=== PATIENT | female | born 1940 | race American Indian/Alaskan Native ===

== ENCOUNTER 2016-08-20 11:11 | Inpatient (IN) | payer MEDICARE ==
[2016-08-20] MEDS ORDERED: NACL 0.9% 1000 ML 1,000 ML IV ONE (12:38)
[2016-08-20] MEDS ORDERED: ZOFRAN IV ONE (12:41)
--- NOTE | 2016-08-20 12:44 | Emergency Department Report ---
HPI - General Chief Complaint: Weakness Time Seen by Provider: 08/20/16 12:26 - HPI HPI: Room 5 The patient is a 75-year-old female presenting with a chief complaint of nausea vomiting and diarrhea. The patient states for the past 2-3 days she has had nausea vomiting and diarrhea. The patient states she has stopped eating secondary to these symptoms. Family noticed the patient's blood sugar has been elevated (400s). Family is also noticed the patient appears to have the "shakes." The patient denies pain of any type. Patient denies shortness of breath or dysuria. Patient denies any sick contacts. Patient denies recent antibiotic use Location: Gastrointestinal system, see above Duration: 2-3 days Quality: Painless Severity: Moderate Modifying factors: [see above] Context: [see above] Mode of transportation: [not driving] ED Past Medical Hx - Past Medical History Hx Hypertension: Yes Hx Diabetes: Yes Additional medical history: high chol. PVD - Surgical History Additional Surgical History: vascular surgery - Family History Family history: no significant - Social History Smoking Status: Never Smoker Substance Use Type: None - Medications Home Medications: Home Medications Medication Instructions Recorded Confirmed Last Taken Type Aspirin [[place] Aspirin] 81 mg PO QDAY 10/21/13 08/20/16 Unknown History Gabapentin 100 mg PO TID 10/21/13 08/20/16 Unknown History Insulin Aspart [Novolog Flexpen] 5 units SUB-Q TID 10/21/13 08/20/16 Unknown History Insulin Glargine,Hum.rec.anlog 18 unit SUB-Q QHS 10/21/13 08/20/16 Unknown History [Lantus Solostar] Metoprolol [Lopressor TAB] 100 mg PO QDAY 10/21/13 08/20/16 Unknown History Simvastatin 20 mg PO QHS 10/21/13 08/20/16 Unknown History cloNIDine [Catapres] 0.2 mg PO BID 10/21/13 08/20/16 Unknown History Bisacodyl [Dulcolax] 5 mg PO DAILY PRN 08/20/16 08/20/16 Unknown History Cilostazol [Pletal] 100 mg PO BID 08/20/16 08/20/16 Unknown History Clopidogrel [Plavix] 75 mg PO QDAY 08/20/16 08/20/16 Unknown History ED Review of Systems ROS: Stated complaint: WEAKNESS Other details as noted in HPI Comment: All other systems reviewed and negative Constitutional: denies: chills, fever Eyes: denies: eye pain, eye discharge, vision change ENT: denies: ear pain, throat pain Respiratory: denies: cough, shortness of breath, wheezing Cardiovascular: denies: chest pain, palpitations Endocrine: no symptoms reported Gastrointestinal: nausea, vomiting, diarrhea. denies: abdominal pain Genitourinary: denies: urgency, dysuria, discharge Musculoskeletal: denies: back pain, joint swelling, arthralgia Skin: denies: rash, lesions Neurological: denies: headache, weakness, paresthesias Psychiatric: denies: anxiety, depression Hematological/Lymphatic: denies: easy bleeding, easy bruising Physical Exam - Physical Exam Vital Signs: Vital Signs 08/20/16 12:07 Temperature 97.8 F Pulse Rate 110 H Respiratory 20 Rate Blood Pressure 240/135 [Right] O2 Sat by Pulse 100 Oximetry Physical Exam: GENERAL: The patient is well-developed well-nourished female lying on stretcher not appearing to be in acute distress. [] HEENT: Normocephalic. Atraumatic. Extraocular motions are intact. NECK: Supple. Trachea midline CHEST/LUNGS: Clear to auscultation. There is no respiratory distress noted. HEART/CARDIOVASCULAR: Regular. There is tachycardia. There is no gallop rub or murmur. ABDOMEN: Abdomen is soft, nontender. Patient has normal bowel sounds. There is no abdominal distention. SKIN: There is no rash. There is no edema. There is no diaphoresis. NEURO: The patient is awake, alert, and oriented. The patient is cooperative. The patient has normal speech MUSCULOSKELETAL: There is no evidence of acute injury. ED Course Vital Signs 08/20/16 12:07 Temperature 97.8 F Pulse Rate 110 H Respiratory 20 Rate Blood Pressure 240/135 [Right] O2 Sat by Pulse 100 Oximetry ED Medical Decision Making - Lab Data Result diagrams: 08/20/16 12:40 08/20/16 12:40 Laboratory Tests 08/20/16 08/20/16 08/20/16 12:27 12:27 12:40 WBC 20.7 H RBC 4.78 Hgb 13.5 Hct 41.9 MCV 88 MCH 28 MCHC 32 RDW 15.3 H Plt Count 316 Add Manual Diff Complete Total Counted 100 Seg Neuts % (Manual) 81.0 H Band Neutrophils % 3.0 Lymphocytes % (Manual) 9.0 L Reactive Lymphs % (Man) 0 Monocytes % (Manual) 7.0 Eosinophils % (Manual) 0 Basophils % (Manual) 0 Metamyelocytes % 0 Myelocytes % 0 Promyelocytes % 0 Blast Cells % 0 Nucleated RBC % Not Reportable Seg Neutrophils # Man 16.8 H Band Neutrophils # 0.6 Lymphocytes # (Manual) 1.9 Abs React Lymphs (Man) 0.0 Monocytes # (Manual) 1.4 H Eosinophils # (Manual) 0.0 Basophils # (Manual) 0.0 Metamyelocytes # 0.0 Myelocytes # 0.0 Promyelocytes # 0.0 Blast Cells # 0.0 WBC Morphology Not Reportable Hypersegmented Neuts Not Reportable Hyposegmented Neuts Not Reportable Hypogranular Neuts Not Reportable Smudge Cells Not Reportable Toxic Granulation Not Reportable Toxic Vacuolation Not Reportable Dohle Bodies Not Reportable Pelger-Huet Anomaly Not Reportable Pauline Rods Not Reportable Platelet Estimate Not Reportable Clumped Platelets Not Reportable Plt Clumps, EDTA Not Reportable Large Platelets Not Reportable Giant Platelets Not Reportable Platelet Satelliting Not Reportable Plt Morphology Comment Not Reportable RBC Morphology Not Reportable Dimorphic RBCs Not Reportable Polychromasia Not Reportable Hypochromasia Not Reportable Poikilocytosis Not Reportable Anisocytosis Few Microcytosis Not Reportable Macrocytosis Not Reportable Spherocytes Not Reportable Pappenheimer Bodies Not Reportable Sickle Cells Not Reportable Target Cells Not Reportable Tear Drop Cells Not Reportable Ovalocytes Not Reportable Helmet Cells Not Reportable Mcqueen-Maud Bodies Not Reportable [place] Rings Not Reportable [place] Cells Not Reportable Bite Cells Not Reportable Crenated Cell Not Reportable Elliptocytes Not Reportable Acanthocytes (Spur) Not Reportable Rouleaux Not Reportable Hemoglobin C Crystals Not Reportable Schistocytes Not Reportable Malaria parasites Not Reportable Sriram Bodies Not Reportable Hem Pathologist Commnt No VBG pH Sodium Potassium Chloride Carbon Dioxide Anion Gap BUN Creatinine Estimated GFR BUN/Creatinine Ratio Glucose POC Glucose 421 H Calcium Total Bilirubin AST ALT Alkaline Phosphatase Total Creatine Kinase CK-MB (CK-2) CK-MB (CK-2) Rel Index Troponin T Total Protein Albumin Albumin/Globulin Ratio Triglycerides Cholesterol LDL Cholesterol Direct HDL Cholesterol Cholesterol/HDL Ratio Amylase Lipase TSH Free T4 Urine Color Blue Urine Turbidity Turbid Urine pH 5.0 Ur Specific [place] 1.016 Urine Protein 100 mg/dl Urine Glucose (UA) >=500 Urine Ketones 20 Urine Blood Sm Urine Nitrite Neg Urine Bilirubin Neg Urine Urobilinogen < 2.0 Ur Leukocyte Esterase Mod Urine WBC (Auto) > 182.0 H Urine RBC (Auto) 62.0 Urine Mucus 1+ Ketones 08/20/16 08/20/16 08/20/16 12:40 12:40 12:40 WBC RBC Hgb Hct MCV MCH MCHC RDW Plt Count Add Manual Diff Total Counted Seg Neuts % (Manual) Band Neutrophils % Lymphocytes % (Manual) Reactive Lymphs % (Man) Monocytes % (Manual) Eosinophils % (Manual) Basophils % (Manual) Metamyelocytes % Myelocytes % Promyelocytes % Blast Cells % Nucleated RBC % Seg Neutrophils # Man Band Neutrophils # Lymphocytes # (Manual) Abs React Lymphs (Man) Monocytes # (Manual) Eosinophils # (Manual) Basophils # (Manual) Metamyelocytes # Myelocytes # Promyelocytes # Blast Cells # WBC Morphology Hypersegmented Neuts Hyposegmented Neuts Hypogranular Neuts Smudge Cells Toxic Granulation Toxic Vacuolation Dohle Bodies Pelger-Huet Anomaly Pauline Rods Platelet Estimate Clumped Platelets Plt Clumps, EDTA Large Platelets Giant Platelets Platelet Satelliting Plt Morphology Comment RBC Morphology Dimorphic RBCs Polychromasia Hypochromasia Poikilocytosis Anisocytosis Microcytosis Macrocytosis Spherocytes Pappenheimer Bodies Sickle Cells Target Cells Tear Drop Cells Ovalocytes Helmet Cells Mcqueen-Maud Bodies [place] Rings [place] Cells Bite Cells Crenated Cell Elliptocytes Acanthocytes (Spur) Rouleaux Hemoglobin C Crystals Schistocytes Malaria parasites Sriram Bodies Hem Pathologist Commnt VBG pH 7.328 Sodium 143 Potassium 3.3 L Chloride 104.1 Carbon Dioxide 16 L Anion Gap 26 BUN 48 H Creatinine 3.9 H Estimated GFR 14 BUN/Creatinine Ratio 12.30 Glucose 446 H POC Glucose Calcium 10.0 Total Bilirubin 0.6 AST 14 ALT 7 Alkaline Phosphatase 143 H Total Creatine Kinase 119 CK-MB (CK-2) 8.7 H CK-MB (CK-2) Rel Index 7.3 H Troponin T 0.037 H Total Protein 9.7 H Albumin 4.3 Albumin/Globulin Ratio 0.8 Triglycerides 80 Cholesterol 188 LDL Cholesterol Direct 80 HDL Cholesterol 92 H Cholesterol/HDL Ratio 2.04 Amylase 107 Lipase 15 TSH Free T4 Urine Color Urine Turbidity Urine pH Ur Specific [place] Urine Protein Urine Glucose (UA) Urine Ketones Urine Blood Urine Nitrite Urine Bilirubin Urine Urobilinogen Ur Leukocyte Esterase Urine WBC (Auto) Urine RBC (Auto) Urine Mucus Ketones 12.2 H 08/20/16 12:40 WBC RBC Hgb Hct MCV MCH MCHC RDW Plt Count Add Manual Diff Total Counted Seg Neuts % (Manual) Band Neutrophils % Lymphocytes % (Manual) Reactive Lymphs % (Man) Monocytes % (Manual) Eosinophils % (Manual) Basophils % (Manual) Metamyelocytes % Myelocytes % Promyelocytes % Blast Cells % Nucleated RBC % Seg Neutrophils # Man Band Neutrophils # Lymphocytes # (Manual) Abs React Lymphs (Man) Monocytes # (Manual) Eosinophils # (Manual) Basophils # (Manual) Metamyelocytes # Myelocytes # Promyelocytes # Blast Cells # WBC Morphology Hypersegmented Neuts Hyposegmented Neuts Hypogranular Neuts Smudge Cells Toxic Granulation Toxic Vacuolation Dohle Bodies Pelger-Huet Anomaly Pauline Rods Platelet Estimate Clumped Platelets Plt Clumps, EDTA Large Platelets Giant Platelets Platelet Satelliting Plt Morphology Comment RBC Morphology Dimorphic RBCs Polychromasia Hypochromasia Poikilocytosis Anisocytosis Microcytosis Macrocytosis Spherocytes Pappenheimer Bodies Sickle Cells Target Cells Tear Drop Cells Ovalocytes Helmet Cells Mcqueen-Maud Bodies [place] Rings [place] Cells Bite Cells Crenated Cell Elliptocytes Acanthocytes (Spur) Rouleaux Hemoglobin C Crystals Schistocytes Malaria parasites Sriram Bodies Hem Pathologist Commnt VBG pH Sodium Potassium Chloride Carbon Dioxide Anion Gap BUN Creatinine Estimated GFR BUN/Creatinine Ratio Glucose POC Glucose Calcium Total Bilirubin AST ALT Alkaline Phosphatase Total Creatine Kinase CK-MB (CK-2) CK-MB (CK-2) Rel Index Troponin T Total Protein Albumin Albumin/Globulin Ratio Triglycerides Cholesterol LDL Cholesterol Direct HDL Cholesterol Cholesterol/HDL Ratio Amylase Lipase TSH 1.620 Free T4 1.04 Urine Color Urine Turbidity Urine pH Ur Specific [place] Urine Protein Urine Glucose (UA) Urine Ketones Urine Blood Urine Nitrite Urine Bilirubin Urine Urobilinogen Ur Leukocyte Esterase Urine WBC (Auto) Urine RBC (Auto) Urine Mucus Ketones - Differential Diagnosis DKA, gastroenteritis, dehydration Critical care attestation.: If time is entered above; I have spent that time in minutes in the direct care of this critically ill patient, excluding procedure time. ED Disposition Clinical Impression: Nausea vomiting and diarrhea, Acute renal failure, UTI (urinary tract infection ), Hypertension, Leukocytosis Disposition: OP ADMITTED IP TO THIS HOSP Is pt being admited?: Yes Does the pt Need Aspirin: No Condition: Serious Instructions: Hypertension (ED) Referrals: PRIMARY CARE, [Primary Care Provider] - 3-5 Days Time of Disposition: 15:17 (hospitalist paged)
--- NOTE | 2016-08-20 12:55 | Admit Criteria Form ---
Admission Criteria Documentation: VOMITING Clinical Indications for Admission to Inpatient Care ( Place 'X' for any and all applicable criteria): Admission is indicated for ANY ONE of the following(1)(2)(3): [X ]I. Inpatient admission required rather than observation care because of ANY ONE of the following: [ ]i) Hemodynamic instability that is severe or persistent [ ]ii) Vomiting that is severe or persistent [ ]iii) Severe electrolyte abnormalities requiring inpatient care [ ]iv) Severe pain requiring acute inpatient management [ ]v) High fever or infection requiring inpatient admission as indicated by ANY ONE of the following(7)(8): [ ]1) Appropriate outpatient or observation care antimicrobial treatment unavailable, not effective, or not feasible [ ]2) Documented bacteremia [ ]3) Temp >104.9 degrees F (40.5 degrees C) (oral) [ ]4) Temp >103.1 degrees F (39.5 C) (oral) or <96.8 degrees F (36 C) (rectal) that does not respond to all emergency treatment measures [X ]vi) Acute renal failure [ ]vii) IV fluid to replace significant ongoing losses (greater than 3 L/m2 per day) [ ]viii) Parenteral nutrition regimen that must be implemented on inpatient basis [ ]ix) Other condition, treatment or monitoring requiring inpatient admission [ ]II. Complete or partial gastrointestinal obstruction [ ]III. Other cause of vomiting requiring hospitalization (eg, poisoning, increased intracranial pressure) [ ]IV. Vomiting due to significant metabolic derangement (eg, severe hypercalcemia, diabetic ketoacidosis) Extended stay beyond goal length of stay may be needed for(1)(4): [ ]a) Severe vomiting [ ]b) Persistent vomiting, vital sign changes, severe electrolyte imbalance , or diagnosed cause of vomiting that requires continued hospitalization (eg, gastrointestinal obstruction , increased intracranial pressure) [ ]c) Surgery to treat identified causes of vomiting (eg, bowel obstruction , intracranial process) [ ]d) Comorbid illness that requires inpatient care (eg, acute heart failure , renal failure) [ ]e) Need for inpatient endoscopy The original [email or web address] content created by [email or web address] has been revised. The portions of the content which have been revised are identified through the use of italic text or in bold, and [facility] [employer] has neither reviewed nor approved the modified material. All other unmodified content is copyright [facility]. Please see references footnoted in the original [facility] edition 2016 Admission Criteria Met: Yes
[2016-08-20 13:08] LABS: Hematocrit 41.9 % (30.3-42.9); Hemoglobin 13.5 gm/dl (10.1-14.3); Mean Corpuscular HGB Conc 32 % (30-34); Mean Corpuscular Hemoglobin 28 pg (28-32); Mean Corpuscular Volume 88 fl (79-97); Platelet Count 316 K/mm3 (140-440); Red Blood Count 4.78 M/mm3 (3.65-5.03); Red Cell Distribution Width 15.3 % (13.2-15.2)
[2016-08-20 13:22] LABS: Creatine Kinase MB 8.7 ng/mL (0.0-4.0)
[2016-08-20 13:23] LABS: B-Hydroxybutyrate 12.2 mg/dL (0.2-2.8)
[2016-08-20 13:24] LABS: Albumin 4.3 g/dL (3.9-5); Albumin/Globulin Ratio 0.8 %; BUN/Creatinine Ratio 12.3; Bilirubin,Total 0.6 mg/dL (0.1-1.2); Chloride 104.1 mmol/L (98-107); Potassium 3.3 mmol/L (3.6-5.0); Total Protein 9.7 g/dL (6.3-8.2)
[2016-08-20] MEDS ORDERED: CATAPRES PO ONE (13:35)
[2016-08-20 13:39] LABS: White Blood Count 20.7 K/mm3 (4.5-11.0)
[2016-08-20] MEDS ORDERED: ROCEPHIN/NS 1 GM/50 ML 50 ML IV ONE (14:15)
[2016-08-20 14:17] LABS: Basophils % (Manual) 0 % (0.0-1.8); Blastocytes % (Manual) 0 %; Eosinophils % (Manual) 0 % (0.0-4.3)
[2016-08-20 14:18] LABS: Anisocytosis Few; Diff Status Complete
[2016-08-20 15:10] LABS: Bilirubin,Urine NEG (Negative); Blood,Urine SM (Negative); Ketones,Urine 20 mg/dL (Negative); Leukocyte Esterase,Urine MOD (Negative); Mucus,Urine 1+ /HPF; Nitrite,Urine NEG (Negative); Urobilinogen,Urine < 2.0 mg/dL (<2.0)
[2016-08-20 15:18] LABS: WBC,Urine > 182.0 /HPF (0.0-6.0)
[2016-08-20] MEDS ORDERED: LOPRESSOR PO ONE ×2 (15:24→16:05)
[2016-08-20] MEDS ORDERED: NACL 0.45% 1000 ML 1,000 ML IV SCH ×2 (16:00→19:00)
[2016-08-20] MEDS ORDERED: K-DUR PO ONE (16:00)
--- NOTE | 2016-08-20 16:13 | History and Physical Report ---
History of Present Illness Date of examination: 08/20/16 Date of admission: 08/20/16 Chief complaint: reduced appetite for 3 days with confusion History of present illness: MIss Sanchez is a 75 yo AAF who presented to the ER with reduced oral intake for 2 -3 days; fever and lethargy; no abdominal pain; non productive cough; diarrhea- soft stool with nausea and vomitting over the last few days; she was seen in the ER and though to have a UTI with acute renal failure; she was started on IVF and IV antibiotics Past History Past Medical History: diabetes, hypertension, PVD, renal failure Past Surgical History: Other ( LT AKA) Social history: full code. denies: smoking, alcohol abuse, prescription drug abuse, IV drug use Family history: diabetes, hypertension Medications and Allergies Allergies Allergy/AdvReac Type Severity Reaction Status Date / Time No Known Allergies Allergy Verified 10/24/13 17:22 Home Medications Medication Instructions Recorded Confirmed Last Taken Type Aspirin [[place] Aspirin] 81 mg PO QDAY 10/21/13 08/20/16 Unknown History Gabapentin 100 mg PO TID 10/21/13 08/20/16 Unknown History Insulin Aspart [Novolog Flexpen] 5 units SUB-Q TID 10/21/13 08/20/16 Unknown History Insulin Glargine,Hum.rec.anlog 18 unit SUB-Q QHS 10/21/13 08/20/16 Unknown History [Lantus Solostar] Metoprolol [Lopressor TAB] 100 mg PO QDAY 10/21/13 08/20/16 Unknown History Simvastatin 20 mg PO QHS 10/21/13 08/20/16 Unknown History cloNIDine [Catapres] 0.2 mg PO BID 10/21/13 08/20/16 Unknown History Bisacodyl [Dulcolax] 5 mg PO DAILY PRN 08/20/16 08/20/16 Unknown History Cilostazol [Pletal] 100 mg PO BID 08/20/16 08/20/16 Unknown History Clopidogrel [Plavix] 75 mg PO QDAY 08/20/16 08/20/16 Unknown History Active Meds: Active Medications Sodium Chloride (Nacl 0.9% 1000 Ml) 1,000 mls @ 250 mls/hr IV ONCE ONE Stop: 08/20/16 16:37 Last Admin: 01/18/17 13:05 Dose: 250 mls/hr Sodium Chloride (Nacl 0.45% 1000 Ml) 1,000 mls @ 100 mls/hr IV DIRECT WAYNE Review of Systems All systems: negative Constitutional: fever, anorexia, fatigue, weakness, malaise, lethargy, poor appetite, no weight loss, no weight gain, no chills Ears, nose, mouth and throat: no ear pain, no ear discharge, no tinnitis, no decreased hearing Breasts: normal Cardiovascular: no chest pain, no orthopnea, no palpitations, no rapid/ irregular heart beat Respiratory: cough, no cough with sputum, no excessive sputum, no hemoptysis, no shortness of breath, no dyspnea on exertion Gastrointestinal: vomiting, diarrhea, no abdominal pain Genitourinary Female: no urinary frequency, no urgency Rectal: no pain, no incontinence Musculoskeletal: no neck pain, no shooting arm pain, no arm numbness/tingling, no low back pain Integumentary: no rash, no pruritis, no redness Neurological: no head injury, no transient paralysis, no paralysis, no weakness Psychiatric: no memory loss, no change in sleep habits, no sleep disturbances, no insomnia Endocrine: no cold intolerance, no heat intolerance, no polyphagia, no excessive thirst Hematologic/Lymphatic: no easy bruising, no easy bleeding Allergic/Immunologic: no urticaria, no allergic rhinitis Exam - Constitutional Vitals: Temp Pulse Resp BP Pulse Ox 97.8 F 104 H 18 194/113 100 08/20/16 12:07 08/20/16 14:00 08/20/16 14:00 08/20/16 14:00 08/20/16 14:00 Results - Labs CBC & Chem 7: 08/20/16 12:40 08/20/16 12:40 Labs: Abnormal lab results 08/20/16 08/20/16 08/20/16 Range/Units 12:27 12:27 12:40 WBC 20.7 H (4.5-11.0) K/mm3 RDW 15.3 H (13.2-15.2) % Seg Neuts % (Manual) 81.0 H (40.0-70.0) % Lymphocytes % (Manual) 9.0 L (13.4-35.0) % Seg Neutrophils # Man 16.8 H (1.8-7.7) K/mm3 Monocytes # (Manual) 1.4 H (0.0-0.8) K/mm3 Potassium (3.6-5.0) mmol/L Carbon Dioxide (22-30) mmol/L BUN (7-17) mg/dL Creatinine (0.7-1.2) mg/dL Glucose (65-100) mg/dL POC Glucose 421 H (70-105) Alkaline Phosphatase (35-129) units/L CK-MB (CK-2) (0.0-4.0) ng/mL CK-MB (CK-2) Rel Index (0-4) Troponin T (0.00-0.029) ng/mL Total Protein (6.3-8.2) g/dL HDL Cholesterol (40-59) mg/dL Urine WBC (Auto) > 182.0 H (0.0-6.0) /HPF Ketones (0.2-2.8) mg/dL 08/20/16 08/20/16 Range/Units 12:40 12:40 WBC (4.5-11.0) K/mm3 RDW (13.2-15.2) % Seg Neuts % (Manual) (40.0-70.0) % Lymphocytes % (Manual) (13.4-35.0) % Seg Neutrophils # Man (1.8-7.7) K/mm3 Monocytes # (Manual) (0.0-0.8) K/mm3 Potassium 3.3 L (3.6-5.0) mmol/L Carbon Dioxide 16 L (22-30) mmol/L BUN 48 H (7-17) mg/dL Creatinine 3.9 H (0.7-1.2) mg/dL Glucose 446 H (65-100) mg/dL POC Glucose (70-105) Alkaline Phosphatase 143 H (35-129) units/L CK-MB (CK-2) 8.7 H (0.0-4.0) ng/mL CK-MB (CK-2) Rel Index 7.3 H (0-4) Troponin T 0.037 H (0.00-0.029) ng/mL Total Protein 9.7 H (6.3-8.2) g/dL HDL Cholesterol 92 H (40-59) mg/dL Urine WBC (Auto) (0.0-6.0) /HPF Ketones 12.2 H (0.2-2.8) mg/dL Assessment and Plan 1. Sepsis POA due to UTI - will admit as an inpatient as more than 2 MN are required for treatment; f/u blood and urine C/S; IV rocephin to be continued; monitor WBC 2. Acute on CKD due to vasomotor nephropathy- IVF; monitor lytes; avoid nephrotoxins; renal consult; renal US 3. DM 2- restart insulin regime; monitor accucheck; insulin sliding scale 4. Accelerated HTN / urgency- restart home meds; IV hydralazine for SBP >/= 160mmhg 5. Elevated trop with elevated CkMB - to r/o ACS-will get ECHO; consult cardiology; asa; beta azam; serial CE check statin; f/u cardiolagy regarding recommendations for full anticoagulation 5. PVD- stable;no acute issues 6. DVT prophylaxis- heparin
[2016-08-20] MEDS ORDERED: DULCOLAX PO PRN (18:30)
[2016-08-20] MEDS: NOVOLOG SUB-Q SCH (18:45)
[2016-08-20] MEDS: APRESOLINE IV PRN ×2 (18:50→21:17)
[2016-08-20 19:41] LABS: Chloride 113.8 mmol/L (98-107)
[2016-08-20] MEDS ORDERED: NON-FORMULARY (Insulin Aspart [Novolog Flexpen] 5 UNITS) SUB-Q SCH (20:00)
[2016-08-20 20:01] LABS: Calcium 9.9 mg/dL (8.4-10.2)
[2016-08-20 20:52] LABS: BUN/Creatinine Ratio 13.07
[2016-08-20] MEDS: CATAPRES PO SCH (21:21)
[2016-08-20] MEDS: ZOCOR PO SCH (21:21)
[2016-08-20] MEDS: NEURONTIN PO SCH (21:21)
[2016-08-20] MEDS ORDERED: INSULIN GLARGINE HUM REC ANLOG 18 UNIT SUB-Q SCH (22:00)
[2016-08-21] MEDS: PLETAL PO SCH ×3 (00:10→21:29)
[2016-08-21] MEDS: LEVEMIR SUB-Q SCH ×2 (00:11→21:43)
[2016-08-21] MEDS: NOVOLOG SUB-Q SCH ×8 (00:11→21:44)
[2016-08-21] MEDS: APRESOLINE IV PRN ×2 (07:00→20:50)
[2016-08-21 07:20] LABS: Hematocrit 39.1 % (30.3-42.9); Hemoglobin 12.5 gm/dl (10.1-14.3); Mean Corpuscular HGB Conc 32 % (30-34); Mean Corpuscular Hemoglobin 28 pg (28-32); Mean Corpuscular Volume 89 fl (79-97); Red Blood Count 4.42 M/mm3 (3.65-5.03); Red Cell Distribution Width 16.2 % (13.2-15.2)
[2016-08-21 07:27] LABS: Platelet Count 317 K/mm3 (140-440); White Blood Count 21.3 K/mm3 (4.5-11.0)
[2016-08-21 07:32] LABS: BUN/Creatinine Ratio 14.14; Calcium 9.7 mg/dL (8.4-10.2); Chloride 111.3 mmol/L (98-107)
[2016-08-21 07:42] LABS: Potassium 6.4 mmol/L (3.6-5.0)
--- NOTE | 2016-08-21 08:12 | Ultrasound Report ---
FINAL REPORT PROCEDURE: US RENAL BILAT TECHNIQUE: Real-time sonography in multiple planes of the kidneys, ureters and urinary bladder was performed with image documentation. CPT 51771 HISTORY: acute on chronic renal failure COMPARISON: None FINDINGS: The study is limited due to patient body habitus. The right kidney appeared to measure 9.1 centimeters and the left kidney appeared to measure 9.8 centimeters in length. There is no evident solid or cystic lesion of either kidney. There is no definite renal calculus. There is no hydronephrosis. Mild increased renal echogenicity is seen bilaterally. The urinary bladder is partially distended without gross polypoidal lesion or mucosal mass.. IMPRESSION: Limited examination due to patient body habitus. Increased renal echogenicity likely reflective of medical renal disease. Partially distended grossly normal urinary bladder.
[2016-08-21 08:35] LABS: Basophils % (Manual) 0 % (0.0-1.8); Blastocytes % (Manual) 0 %; Eosinophils % (Manual) 0 % (0.0-4.3)
[2016-08-21 08:36] LABS: Anisocytosis Few; Diff Status Complete
[2016-08-21] MEDS: NEURONTIN PO SCH ×3 (09:58→21:30)
[2016-08-21] MEDS: ROCEPHIN/NS 1 GM/50 ML 50 ML IV SCH (09:59)
--- NOTE | 2016-08-21 10:00 | Consultation ---
History of Present Illness - History of Present Illness Seen today note dictated A/p Renal failure severe in a patient who 75-year-old with multiple comorbidities and risk factors for chronic kidney disease patient's creatinine was 1.4 remotely in the past She has been admitted here with creatinine of 3.4 upon admission however patient clearly has history of nausea vomiting poor by mouth intake reduced skin turgor dry oral mucosa and is a need for IV hydration,possibly may have urinary tract infection, neurogenic blad(appears to have distended bladder would like to place a Huerta catheter) Metabolic acidosis, with significantly elevated lactate, rule out DKA please monitor and follow check arterial blood gas May have HTN DM renovasc assoc nephropathy She has no acute emergent indication for renal replacement therapy at this time Patient will benefit from further workup of renal failure including a renal imaging labs, in the meantime maintain judicious hydration Diabetes mellitus type 2 uncontrolled blood sugar was around 421 that they have caused some degree of osmotic diuresis and dehydration Nausea vomiting? Underlying diabetic gastroparesis rule out other causes, she does have neuropathy Patient is currently being treated for presumed urinary tract infection Admitted with encephalopathy confusion, need to rule out any possibility of underlying cognitive impairment dementia Many other health issues including diabetes, hypertension, peripheral vascular disease, underlying renal failure Renal prognosis is guarded at this time Past History Past Medical History: diabetes, hypertension, PVD, renal failure Past Surgical History: Other ( LT AKA) Social history: full code. denies: smoking, alcohol abuse, prescription drug abuse, IV drug use Family history: diabetes, hypertension Medications and Allergies Allergies Allergy/AdvReac Type Severity Reaction Status Date / Time No Known Allergies Allergy Verified 10/24/13 17:22 Home Medications Medication Instructions Recorded Confirmed Last Taken Type Aspirin [[place] Aspirin] 81 mg PO QDAY 10/21/13 08/20/16 Unknown History Gabapentin 100 mg PO TID 10/21/13 08/20/16 Unknown History Insulin Aspart [Novolog Flexpen] 5 units SUB-Q TID 10/21/13 08/20/16 Unknown History Insulin Glargine,Hum.rec.anlog 18 unit SUB-Q QHS 10/21/13 08/20/16 Unknown History [Lantus Solostar] Metoprolol [Lopressor TAB] 100 mg PO QDAY 10/21/13 08/20/16 Unknown History Simvastatin 20 mg PO QHS 10/21/13 08/20/16 Unknown History cloNIDine [Catapres] 0.2 mg PO BID 10/21/13 08/20/16 Unknown History Bisacodyl [Dulcolax] 5 mg PO DAILY PRN 08/20/16 08/20/16 Unknown History Cilostazol [Pletal] 100 mg PO BID 08/20/16 08/20/16 Unknown History Clopidogrel [Plavix] 75 mg PO QDAY 08/20/16 08/20/16 Unknown History Active Meds: Active Medications Aspirin (Baby Aspirin) 81 mg PO QDAY [facility] Bisacodyl (Dulcolax) 5 mg PO DAILY PRN PRN Reason: Constipation Cilostazol (Pletal) 100 mg PO BID [facility] Last Admin: 08/21/16 00:10 Dose: 100 mg Clonidine HCl (Catapres) 0.2 mg PO BID [facility] Last Admin: 08/20/16 21:21 Dose: 0.2 mg Clopidogrel Bisulfate (Plavix) 75 mg PO QDAY [facility] Gabapentin (Neurontin) 100 mg PO TID [facility] Last Admin: 08/20/16 21:21 Dose: 100 mg Hydralazine HCl (Apresoline) 10 mg IV Q4HR PRN PRN Reason: for SBP >/=160 Last Admin: 08/21/16 07:00 Dose: 10 mg Ceftriaxone Sodium (Rocephin/Ns 1 Gm/50 Ml) 50 mls @ 100 mls/hr IV Q24H [facility] PRN Reason: Protocol Sodium Chloride (Nacl 0.45% 1000 Ml) 1,000 mls @ 100 mls/hr IV DIRECT [facility] Insulin Aspart (Novolog) 0 units SUB-Q ACHS [facility] PRN Reason: Protocol Last Admin: 08/21/16 00:11 Dose: 2 units Insulin Aspart (Novolog) 5 units SUB-Q AC [facility] Insulin Detemir (Levemir) 18 units SUB-Q QHS [facility] Last Admin: 08/21/16 00:11 Dose: 18 units Metoprolol Tartrate (Lopressor) 100 mg PO QDAY [facility] Simvastatin (Zocor) 20 mg PO QHS [facility] Last Admin: 08/20/16 21:21 Dose: 20 mg Exam - Vital Signs Vital signs: Vital Signs Temp Pulse Resp BP Pulse Ox 97.8 F 110 H 20 240/135 100 08/20/16 12:07 08/20/16 12:07 08/20/16 12:07 08/20/16 12:07 08/20/16 12:07 Results - Lab Results 08/21/16 05:41 08/21/16 16:54 Most recent lab results Calcium 9.7 mg/dL (8.4-10.2) 08/21/16 05:41
[2016-08-21] MEDS: PLAVIX PO SCH (10:01)
[2016-08-21] MEDS: LOPRESSOR PO SCH (10:02)
[2016-08-21] MEDS: CATAPRES PO SCH ×2 (10:02→21:30)
[2016-08-21] MEDS: BABY ASPIRIN PO SCH (10:02)
--- NOTE | 2016-08-21 10:41 | Progress Note ---
Assessment and Plan Assessment and plan: MIss Sanchez is a 75 yo AAF who presented to the ER with reduced oral intake for 2 -3 days; fever and lethargy; no abdominal pain; non productive cough; diarrhea- soft stool with nausea and vomitting for 3-4 days who was admitted for Urosepsis and GIOVANNY 1. Sepsis POA due to UTI - fup blood and urine cx, continue abx 2. Acute on CKD due to vasomotor nephropathy- continue IVF, avoid nephrotoxins, Renal consult, CT A/P to r/o obstructive nephropathy 3. DM 2- continue insulins 4. Accelerated HTN / urgency- continue home meds plus PRN hydralazine 5. Elevated trop detectable troponin, but not significantly elevated, likely poor excretion due to kidney failure, Fup cardiology consult, low suspicion of coronary event 5. PVD- stable;no acute issues 6. Hyperkalemia dc K supplement, r/o obstructive uropathy History Interval history: Blood pressure was elevated, , no fevers overnight, continues to feel poorly, complaining of lethargy, fatigue, diarrhea is improving, nausea and vomiting is also improving. Hospitalist Physical - Physical exam Narrative exam: General: Toxic appearance, lethargic HEENT: MMM, EOMI cardiac: S1-S2 heard lungs: clear to auscultation, abdomen: soft, nontender, nondistended bowel sounds positive extremities: no edema clubbing or cyanosis Skin: no rash or lesion Neuro: Opens eyes and falls back asleep, somnolence, mostly mumbling, not obeying commands - Constitutional Vitals: Temp Pulse Resp BP Pulse Ox 98.2 F 100 H 16 144/65 98 08/21/16 07:41 08/21/16 07:41 08/21/16 07:41 08/21/16 07:41 08/21/16 07:41 Results - Labs CBC & Chem 7: 08/21/16 05:41 08/21/16 16:54 Labs: Laboratory Last Values WBC 21.3 K/mm3 (4.5-11.0) H 08/21/16 05:41 RBC 4.42 M/mm3 (3.65-5.03) 08/21/16 05:41 Hgb 12.5 gm/dl (10.1-14.3) 08/21/16 05:41 Hct 39.1 % (30.3-42.9) 08/21/16 05:41 MCV 89 fl (79-97) 08/21/16 05:41 MCH 28 pg (28-32) 08/21/16 05:41 MCHC 32 % (30-34) 08/21/16 05:41 RDW 16.2 % (13.2-15.2) H 08/21/16 05:41 Plt Count 317 K/mm3 (140-440) 08/21/16 05:41 Add Manual Diff Complete 08/21/16 05:41 Total Counted 100 08/21/16 05:41 Seg Neutrophils % Electromatic Typist 08/21/16 05:41 Seg Neuts % (Manual) 86.0 % (40.0-70.0) H 08/21/16 05:41 Band Neutrophils % 2.0 % 08/21/16 05:41 Lymphocytes % (Manual) 8.0 % (13.4-35.0) L 08/21/16 05:41 Reactive Lymphs % (Man) 0 % 08/21/16 05:41 Monocytes % (Manual) 4.0 % (0.0-7.3) 08/21/16 05:41 Eosinophils % (Manual) 0 % (0.0-4.3) 08/21/16 05:41 Basophils % (Manual) 0 % (0.0-1.8) 08/21/16 05:41 Metamyelocytes % 0 % 08/21/16 05:41 Myelocytes % 0 % 08/21/16 05:41 Promyelocytes % 0 % 08/21/16 05:41 Blast Cells % 0 % 08/21/16 05:41 Nucleated RBC % Not Reportable 08/21/16 05:41 Seg Neutrophils # Man 18.3 K/mm3 (1.8-7.7) H 08/21/16 05:41 Band Neutrophils # 0.4 K/mm3 08/21/16 05:41 Lymphocytes # (Manual) 1.7 K/mm3 (1.2-5.4) 08/21/16 05:41 Abs React Lymphs (Man) 0.0 K/mm3 08/21/16 05:41 Monocytes # (Manual) 0.9 K/mm3 (0.0-0.8) H 08/21/16 05:41 Eosinophils # (Manual) 0.0 K/mm3 (0.0-0.4) 08/21/16 05:41 Basophils # (Manual) 0.0 K/mm3 (0.0-0.1) 08/21/16 05:41 Metamyelocytes # 0.0 K/mm3 08/21/16 05:41 Myelocytes # 0.0 K/mm3 08/21/16 05:41 Promyelocytes # 0.0 K/mm3 08/21/16 05:41 Blast Cells # 0.0 K/mm3 08/21/16 05:41 WBC Morphology Not Reportable 08/21/16 05:41 Hypersegmented Neuts Not Reportable 08/21/16 05:41 Hyposegmented Neuts Not Reportable 08/21/16 05:41 Hypogranular Neuts Not Reportable 08/21/16 05:41 Smudge Cells Not Reportable 08/21/16 05:41 Toxic Granulation Not Reportable 08/21/16 05:41 Toxic Vacuolation Not Reportable 08/21/16 05:41 Dohle Bodies Not Reportable 08/21/16 05:41 Pel[place]-Huet Anomaly Not Reportable 08/21/16 05:41 Pauline Rods Not Reportable 08/21/16 05:41 Platelet Estimate Not Reportable 08/21/16 05:41 Clumped Platelets Not Reportable 08/21/16 05:41 Plt Clumps, EDTA Not Reportable 08/21/16 05:41 Large Platelets Not Reportable 08/21/16 05:41 Giant Platelets Not Reportable 08/21/16 05:41 Platelet Satelliting Not Reportable 08/21/16 05:41 Plt Morphology Comment Not Reportable 08/21/16 05:41 RBC Morphology Not Reportable 08/21/16 05:41 Dimorphic RBCs Not Reportable 08/21/16 05:41 Polychromasia Not Reportable 08/21/16 05:41 Hypochromasia Not Reportable 08/21/16 05:41 Poikilocytosis Not Reportable 08/21/16 05:41 Anisocytosis Few 08/21/16 05:41 Microcytosis Not Reportable 08/21/16 05:41 Macrocytosis Not Reportable 08/21/16 05:41 Spherocytes Not Reportable 08/21/16 05:41 Pappenheimer Bodies Not Reportable 08/21/16 05:41 Sickle Cells Not Reportable 08/21/16 05:41 Target Cells Not Reportable 08/21/16 05:41 Tear Drop Cells Not Reportable 08/21/16 05:41 Ovalocytes Not Reportable 08/21/16 05:41 Helmet Cells Not Reportable 08/21/16 05:41 [place] Bodies Not Reportable 08/21/16 05:41 [place] Rings Not Reportable 08/21/16 05:41 [place] Cells Not Reportable 08/21/16 05:41 Bite Cells Not Reportable 08/21/16 05:41 Crenated Cell Not Reportable 08/21/16 05:41 Elliptocytes Not Reportable 08/21/16 05:41 Acanthocytes (Spur) Not Reportable 08/21/16 05:41 Rouleaux Not Reportable 08/21/16 05:41 Hemoglobin C Crystals Not Reportable 08/21/16 05:41 Schistocytes Not Reportable 08/21/16 05:41 Malaria parasites Not Reportable 08/21/16 05:41 Sriram Bodies Not Reportable 08/21/16 05:41 Hem Pathologist Commnt No 08/21/16 05:41 VBG pH 7.328 (7.320-7.420) 08/20/16 12:40 Sodium 145 mmol/L (137-145) 08/21/16 05:41 Potassium 6.4 mmol/L (3.6-5.0) H* D 08/21/16 05:41 Chloride 111.3 mmol/L (98-107) H 08/21/16 05:41 Carbon Dioxide 14 mmol/L (22-30) L 08/21/16 05:41 Anion Gap 26 mmol/L 08/21/16 05:41 BUN 58 mg/dL (7-17) H 08/21/16 05:41 Creatinine 4.1 mg/dL (0.7-1.2) H 08/21/16 05:41 Estimated GFR 13 ml/min 08/21/16 05:41 BUN/Creatinine Ratio 14.14 % 08/21/16 05:41 Glucose 176 mg/dL (65-100) H 08/21/16 05:41 POC Glucose 186 (70-105) H 08/21/16 06:38 Hemoglobin A1c 13.1 % (4-6) H 08/20/16 12:40 Lactic Acid 3.0 mmol/L (0.7-2.0) H* 08/20/16 18:58 Calcium 9.7 mg/dL (8.4-10.2) 08/21/16 05:41 Total Bilirubin 0.6 mg/dL (0.1-1.2) 08/20/16 12:40 AST 14 units/L (5-40) 08/20/16 12:40 ALT 7 units/L (7-56) 08/20/16 12:40 Alkaline Phosphatase 143 units/L (35-129) H 08/20/16 12:40 Total Creatine Kinase 119 units/L (30-135) 08/20/16 12:40 CK-MB (CK-2) 8.7 ng/mL (0.0-4.0) H 08/20/16 12:40 CK-MB (CK-2) Rel Index 7.3 (0-4) H 08/20/16 12:40 Troponin T 0.037 ng/mL (0.00-0.029) H 08/20/16 12:40 Total Protein 9.7 g/dL (6.3-8.2) H 08/20/16 12:40 Albumin 4.3 g/dL (3.9-5) 08/20/16 12:40 Albumin/Globulin Ratio 0.8 % 08/20/16 12:40 Triglycerides 80 mg/dL (2-149) 08/20/16 12:40 Cholesterol 188 mg/dL (50-199) 08/20/16 12:40 LDL Cholesterol Direct 80 mg/dL (50-130) 08/20/16 12:40 HDL Cholesterol 92 mg/dL (40-59) H 08/20/16 12:40 Cholesterol/HDL Ratio 2.04 % 08/20/16 12:40 Amylase 107 units/L (27-131) 08/20/16 12:40 Lipase 15 units/L (13-60) 08/20/16 12:40 TSH 1.620 mlU/mL (0.270-4.200) 08/20/16 12:40 Free T4 1.04 ng/dL (0.76-1.46) 08/20/16 12:40 Urine Color Blue (Yellow) 08/20/16 12:27 Urine Turbidity Turbid (Clear) 08/20/16 12:27 Urine pH 5.0 (5.0-7.0) 08/20/16 12:27 Ur Specific [place] 1.016 (1.003-1.030) 08/20/16 12:27 Urine Protein 100 mg/dl mg/dL (Negative) 08/20/16 12:27 Urine Glucose (UA) >=500 mg/dL (Negative) 08/20/16 12:27 Urine Ketones 20 mg/dL (Negative) 08/20/16 12:27 Urine Blood Sm (Negative) 08/20/16 12:27 Urine Nitrite Neg (Negative) 08/20/16 12:27 Urine Bilirubin Neg (Negative) 08/20/16 12:27 Urine Urobilinogen < 2.0 mg/dL (<2.0) 08/20/16 12:27 Ur Leukocyte Esterase Mod (Negative) 08/20/16 12:27 Urine WBC (Auto) > 182.0 /HPF (0.0-6.0) H 08/20/16 12:27 Urine RBC (Auto) 62.0 /HPF (0.0-6.0) 08/20/16 12:27 Urine Mucus 1+ /HPF 08/20/16 12:27 Ketones 12.2 mg/dL (0.2-2.8) H 08/20/16 12:40 - Imaging and Cardiology Imaging and Cardiology: Renal ultrasound, image reviewed, shows some medical renal disease, and distended urinary bladder.. Study is limited due to body habitus.
[2016-08-21 11:14] LABS: BUN/Creatinine Ratio 14.41; Calcium 9.9 mg/dL (8.4-10.2); Chloride 110.7 mmol/L (98-107); Potassium 4.2 mmol/L (3.6-5.0)
--- NOTE | 2016-08-21 11:53 | Cat Scan Report ---
CT scan of abdomen and pelvis without IV contrast: History: GIOVANNY, concern for obstructive uropathy. Findings: Normal lung bases. No pleural pericardial effusion. Normal liver spleen pancreas and gallbladder. No distinct mass of the adrenals. No calculi the kidney parenchyma. No evidence of hydronephrosis. Distended urinary bladder. No free intraperitoneal fluid or air. No evidence of adenopathy. Atherosclerotic abdominal aorta without aneurysm. Gaseous colon with small volume stool in colon. No evidence of appendicitis or diverticulitis. Impression: No definite evidence of obstructive uropathy. No acute abdominal findings.
--- NOTE | 2016-08-21 13:14 | Consultation ---
Addendum entered and electronically signed by BALBINA JACKSON MD 08/21/16 13:55 : This patient is a 75-year-old woman who presents to the hospital with weakness, nausea/vomiting, uncontrolled diabetes and acute renal failure. In presentation , her glucose was 421, white count was 20,000, creatinine was 3.9. Her baseline creatinine was 1.3 in 2014. Cardiac consultation is requested for an isolated mild rise in her troponin level. Total CPK and CK-MB were at minimal levels of 119 and 8.7 respectively, and the troponin was 0.03. Patient reports no chest pain, no shortness of breath, no palpitations and no lower extremity edema. She is a poor historian, unable to articulate any history of prior cardiac disease or cardiac workup. Note that her home medications include clopidogrel, but she is unable to report the indication for this medication. She denies any prior history of coronary artery disease also coronary stent placement. From her records, she has peripheral vascular disease and is status post left below knee amputation. EKG on this admission demonstrates normal sinus rhythm, left ventricle hypertrophy with nonspecific ST and T-wave repolarization abnormalities of LVH. Recommendations: Continue workup and management of the patient's primary presenting complaint of weakness, nausea/vomiting uncontrolled diabetes and acute renal failure. No cardiac workup is indicated for mild isolated rise in troponin, which is a nonspecific finding in this clinical setting. In addition, the patient has no cardiac symptoms. We will attempt to get her old records, for definitive assessment of her clopidogrel indication, and definitive assessment of any prior cardiac history or workup. Original Note: History of Present Illness Consult date: 08/21/16 Consult reason: elevated troponin History of present illness: This is a 75yr old woman who presented to this hospital with nausea vomiting and generalized weakness. Noted a WBC 20,700, creatinine 3.9 and glucose of 421. Systolic BP greater than 240 in the ED. Cardiac consultation requested for nonspecific elevated troponin of 0.03. Her ECG shows a sinus rhythm with LVH and twave abnormalities. Patient denies chest pain and shortness of breath. Noted to be on home clopidogrel. Patient unable to clarify why she is taking this medication. She denies history of coronary disease but reports peripheral vascular disease status post left BKA 4 years ago. Past History Past Medical History: diabetes, hypertension, PVD, renal failure Past Surgical History: Other ( LT AKA) Social history: full code. denies: smoking, alcohol abuse, prescription drug abuse, IV drug use Family history: diabetes, hypertension Medications and Allergies Allergies Allergy/AdvReac Type Severity Reaction Status Date / Time No Known Allergies Allergy Verified 10/24/13 17:22 Home Medications Medication Instructions Recorded Confirmed Last Taken Type Aspirin [[place] Aspirin] 81 mg PO QDAY 10/21/13 08/20/16 Unknown History Gabapentin 100 mg PO TID 10/21/13 08/20/16 Unknown History Insulin Aspart [Novolog Flexpen] 5 units SUB-Q TID 10/21/13 08/20/16 Unknown History Insulin Glargine,Hum.rec.anlog 18 unit SUB-Q QHS 10/21/13 08/20/16 Unknown History [Lantus Solostar] Metoprolol [Lopressor TAB] 100 mg PO QDAY 10/21/13 08/20/16 Unknown History Simvastatin 20 mg PO QHS 10/21/13 08/20/16 Unknown History cloNIDine [Catapres] 0.2 mg PO BID 10/21/13 08/20/16 Unknown History Bisacodyl [Dulcolax] 5 mg PO DAILY PRN 08/20/16 08/20/16 Unknown History Cilostazol [Pletal] 100 mg PO BID 08/20/16 08/20/16 Unknown History Clopidogrel [Plavix] 75 mg PO QDAY 08/20/16 08/20/16 Unknown History Active Meds: Active Medications Aspirin (Baby Aspirin) 81 mg PO QDAY [facility] Last Admin: 08/21/16 10:02 Dose: 81 mg Bisacodyl (Dulcolax) 5 mg PO DAILY PRN PRN Reason: Constipation Cilostazol (Pletal) 100 mg PO BID [facility] Last Admin: 08/21/16 10:02 Dose: 100 mg Clonidine HCl (Catapres) 0.2 mg PO BID [facility] Last Admin: 08/21/16 10:02 Dose: 0.2 mg Clopidogrel Bisulfate (Plavix) 75 mg PO QDAY [facility] Last Admin: 08/21/16 10:01 Dose: 75 mg Gabapentin (Neurontin) 100 mg PO TID [facility] Last Admin: 08/21/16 09:58 Dose: 100 mg Hydralazine HCl (Apresoline) 10 mg IV Q4HR PRN PRN Reason: for SBP >/=160 Last Admin: 08/21/16 07:00 Dose: 10 mg Ceftriaxone Sodium (Rocephin/Ns 1 Gm/50 Ml) 50 mls @ 100 mls/hr IV Q24H [facility] PRN Reason: Protocol Last Admin: 08/21/16 09:59 Dose: 100 mls/hr Sodium Chloride (Nacl 0.45% 1000 Ml) 1,000 mls @ 100 mls/hr IV DIRECT [facility] Last Admin: 08/21/16 09:58 Dose: 100 mls/hr Insulin Aspart (Novolog) 0 units SUB-Q ACHS [facility] PRN Reason: Protocol Last Admin: 08/21/16 10:00 Dose: 2 units Insulin Aspart (Novolog) 5 units SUB-Q AC [facility] Last Admin: 08/21/16 08:00 Dose: Not Given Insulin Detemir (Levemir) 18 units SUB-Q QHS [facility] Last Admin: 08/21/16 00:11 Dose: 18 units Metoprolol Tartrate (Lopressor) 100 mg PO QDAY [facility] Last Admin: 08/21/16 10:02 Dose: 100 mg Simvastatin (Zocor) 20 mg PO QHS [facility] Last Admin: 08/20/16 21:21 Dose: 20 mg Physical Examination Vital Signs Temp Pulse Resp BP Pulse Ox 97.8 F 110 H 20 240/135 100 08/20/16 12:07 08/20/16 12:07 08/20/16 12:07 08/20/16 12:07 08/20/16 12:07 General appearance: no acute distress HEENT: Positive: PERRL Neck: Positive: trachea midline Cardiac: Positive: Reg Rate and Rhythm Lungs: Positive: Decreased Breath Sounds Extremities: Present: Other (left BKA) Results 08/21/16 05:41 08/21/16 10:25 CBC 08/21/16 Range/Units 05:41 WBC 21.3 H (4.5-11.0) K/mm3 RBC 4.42 (3.65-5.03) M/mm3 Hgb 12.5 (10.1-14.3) gm/dl Hct 39.1 (30.3-42.9) % Plt Count 317 (140-440) K/mm3 Comprehensive Metabolic Panel 08/20/16 08/21/16 08/21/16 Range/Units 18:58 05:41 10:25 Sodium 149 H 145 146 H (137-145) mmol/L Potassium 4.0 D 6.4 H* D 4.2 D (3.6-5.0) mmol/L Chloride 113.8 H 111.3 H 110.7 H (98-107) mmol/L Carbon Dioxide 15 L 14 L 14 L (22-30) mmol/L BUN 50 H 58 H 62 H (7-17) mg/dL Creatinine 3.9 H 4.1 H 4.3 H (0.7-1.2) mg/dL Glucose 123 H 176 H 202 H (65-100) mg/dL Calcium 9.9 9.7 9.9 (8.4-10.2) mg/dL EKG interpretations - Telemetry EKG Rhythm: Sinus Rhythm Assessment and Plan Generalized weakness with N/V Leukocytosis Acute renal failure DM Hypertension PVD s/p Left BKA
[2016-08-21] MEDS ORDERED: D50W (25GM) IV ONE ×2 (16:37→16:39)
[2016-08-21] MEDS ORDERED: ZOFRAN IV PRN (17:33)
[2016-08-21] MEDS ORDERED: D5W 1,000 ML IV SCH (18:00)
[2016-08-21] MEDS: SODIUM BICARBONATE 100 MEQ in STERILE WATER 1,000 ML IV SCH (21:19)
[2016-08-21] MEDS: ZOCOR PO SCH (21:29)
[2016-08-21 22:11] LABS: ISTAT Base Excess -11; ISTAT DEVICE 0; ISTAT HCO3 15.6; ISTAT PH 7.297 (7.35-7.45); ISTAT PO2 93 (80-105); ISTAT SO2 96; ISTAT TCO2 17
[2016-08-22] MEDS: NOVOLOG SUB-Q SCH ×7 (08:25→23:09)
[2016-08-22] MEDS: PLAVIX PO SCH (09:14)
[2016-08-22] MEDS: LOPRESSOR PO SCH (09:15)
[2016-08-22] MEDS: CATAPRES PO SCH ×2 (09:15→23:12)
[2016-08-22] MEDS: BABY ASPIRIN PO SCH (09:15)
[2016-08-22] MEDS: NEURONTIN PO SCH ×3 (09:15→23:11)
--- NOTE | 2016-08-22 10:12 | Progress Note ---
Assessment and Plan Generalized weakness with N/V Leukocytosis Acute renal failure DM Hypertension PVD s/p Left BKA Elevated troponin, nonspecific pt denies chest pain No cardiac workup is indicated for mild isolated rise in troponin, which is a nonspecific finding in this clinical setting. Conservative cardiac management. Subjective Date of service: 08/22/16 Interval history: Patient resting in bed comfortably. No distress noted. Objective Vital Signs Temp Pulse Pulse Resp BP BP Pulse Ox 08/22/16 07:15 98.1 F 108 H 14 167/77 98 08/22/16 03:57 97.8 F 111 H 22 142/60 97 08/21/16 22:00 97.0 F L 66 20 149/66 97 08/21/16 21:30 66 210/96 08/21/16 20:00 97.9 F 66 20 210/96 99 08/21/16 15:46 97.9 F 75 16 121/68 97 08/21/16 12:45 98.0 F 81 18 181/82 98 - Physical Examination General: No Apparent Distress HEENT: Positive: PERRL Neck: Positive: trachea midline Cardiac: Positive: Reg Rate and Rhythm Lungs: Positive: Decreased Breath Sounds Extremities: Present: Other (left BKA) - Labs and Meds Comprehensive Metabolic Panel 08/21/16 08/21/16 Range/Units 10:25 16:54 Sodium 146 H (137-145) mmol/L Potassium 4.2 D (3.6-5.0) mmol/L Chloride 110.7 H (98-107) mmol/L Carbon Dioxide 14 L (22-30) mmol/L BUN 62 H (7-17) mg/dL Creatinine 4.3 H (0.7-1.2) mg/dL Glucose 202 H 225 H (65-100) mg/dL Calcium 9.9 (8.4-10.2) mg/dL
--- NOTE | 2016-08-22 11:21 | Progress Note ---
Assessment and Plan Renal failure patient's creatinine is currently worsening it was 3.9 yesterday currently 4.3, patient needs follow-up labs on a daily basis please order if renal function continues to worsen patient may require renal replacement therapy,she already has echogenic kidneys on ultrasonogram Patient has multiple risk factors for underlying chronic kidney disease, also may have limited renal reserve with her age maintain hydration and follow-up, Bladder appear to be distended on the ultrasonogram patient does have echogenic kidney, creatinine was 1.3 elevated in October 2013 must maintain a Huerta catheter for now Metabolic acidosis currently on bicarbonate drip Follow-up on the lactic acid as well as bicarbonate patient needs to have lab today Clinically appears to be prerenal Urinalysis likely suggestive of a culture-negative urinary tract infection , she does appear to have significant leukocytosis for which follow-up blood cultures have been negative so far and that she had lactic acidosis need to rule out any possibility of sepsis, could also be due to severe dehydration ? diabetic ketoacidosis,renal prognosis appears to be guarded, discussed with family member at bedside Subjective Interval history: patient was seen today for follow-up on multiple renal related issues Denies any complaints of nausea vomiting currently labs are pending. Family is at bedside Vitals labs intake output medications were reviewed Objective - Vital Signs Vital signs: Vital Signs - 12hr 08/22/16 08/22/16 03:57 07:15 Temperature 97.8 F 98.1 F Pulse Rate [ 111 H 108 H Left Radial] Respiratory 22 14 Rate Blood Pressure 142/60 167/77 [Left Arm] O2 Sat by Pulse 97 98 Oximetry - General Appearance General appearance: appears stated age EENT: mucous membranes dry Neck: no JVD Respiratory: Present: Clear to Ascultation Gastrointestinal: other (nontender abdomen) Integumentary: other (dry skin) Neurologic: other (alert rate no acute distress) - Lab 08/23/16 04:58 08/23/16 04:58 Most recent lab results Calcium 9.9 mg/dL (8.4-10.2) 08/21/16 10:25
[2016-08-22] MEDS: SODIUM BICARBONATE 100 MEQ in STERILE WATER 1,000 ML IV SCH (12:10)
[2016-08-22] MEDS: PLETAL PO SCH ×2 (12:11→23:10)
[2016-08-22] MEDS: ROCEPHIN/NS 1 GM/50 ML 50 ML IV SCH (12:17)
--- NOTE | 2016-08-22 13:44 | Progress Note ---
Assessment and Plan Assessment and plan: MIss Sanchez is a 75 yo AAF who presented to the ER with reduced oral intake for 2 -3 days; fever and lethargy; no abdominal pain; non productive cough; diarrhea- soft stool with nausea and vomitting for 3-4 days who was admitted for Urosepsis and GIOVANNY 1. Sepsis POA due to UTI - fup blood and urine cx, continue abx 2. Acute on CKD due to vasomotor nephropathy with - continue IVF, avoid nephrotoxins, Renal consult, imaging shows no obstruction, keep goss in 3. DM 2- continue insulins 4. Accelerated HTN / urgency- continue home meds plus PRN hydralazine 5. Elevated trop detectable troponin, but not significantly elevated, likely poor excretion due to kidney failure, Fup cardiology consult, low suspicion of coronary event 5. PVD- stable;no acute issues 6. Hyperkalemia dc K supplement, has now normalized 7. Lactic acidosis continue bicarb drip History Interval history: Blood pressure was elevated, , no fevers overnight, continues to feel poorly, complaining of lethargy, fatigue, diarrhea is improving, nausea and vomiting is also improving. Hospitalist Physical - Physical exam Narrative exam: General: Toxic appearance, lethargic HEENT: MMM, EOMI cardiac: S1-S2 heard lungs: clear to auscultation, abdomen: soft, nontender, nondistended bowel sounds positive extremities: no edema clubbing or cyanosis Skin: no rash or lesion Neuro: Opens eyes and falls back asleep, somnolence, mostly mumbling, not obeying commands - Constitutional Vitals: Temp Pulse Resp BP Pulse Ox 98.1 F 108 H 14 167/77 98 08/22/16 07:15 08/22/16 07:15 08/22/16 07:15 08/22/16 07:15 08/22/16 07:15 General appearance: Present: no acute distress Results - Labs CBC & Chem 7: 08/23/16 04:58 08/23/16 04:58 Labs: Laboratory Last Values WBC 21.3 K/mm3 (4.5-11.0) H 08/21/16 05:41 RBC 4.42 M/mm3 (3.65-5.03) 08/21/16 05:41 Hgb 12.5 gm/dl (10.1-14.3) 08/21/16 05:41 Hct 39.1 % (30.3-42.9) 08/21/16 05:41 MCV 89 fl (79-97) 08/21/16 05:41 MCH 28 pg (28-32) 08/21/16 05:41 MCHC 32 % (30-34) 08/21/16 05:41 RDW 16.2 % (13.2-15.2) H 08/21/16 05:41 Plt Count 317 K/mm3 (140-440) 08/21/16 05:41 Add Manual Diff Complete 08/21/16 05:41 Total Counted 100 08/21/16 05:41 Seg Neutrophils % Account Resolution Specialist 08/21/16 05:41 Seg Neuts % (Manual) 86.0 % (40.0-70.0) H 08/21/16 05:41 Band Neutrophils % 2.0 % 08/21/16 05:41 Lymphocytes % (Manual) 8.0 % (13.4-35.0) L 08/21/16 05:41 Reactive Lymphs % (Man) 0 % 08/21/16 05:41 Monocytes % (Manual) 4.0 % (0.0-7.3) 08/21/16 05:41 Eosinophils % (Manual) 0 % (0.0-4.3) 08/21/16 05:41 Basophils % (Manual) 0 % (0.0-1.8) 08/21/16 05:41 Metamyelocytes % 0 % 08/21/16 05:41 Myelocytes % 0 % 08/21/16 05:41 Promyelocytes % 0 % 08/21/16 05:41 Blast Cells % 0 % 08/21/16 05:41 Nucleated RBC % Not Reportable 08/21/16 05:41 Seg Neutrophils # Man 18.3 K/mm3 (1.8-7.7) H 08/21/16 05:41 Band Neutrophils # 0.4 K/mm3 08/21/16 05:41 Lymphocytes # (Manual) 1.7 K/mm3 (1.2-5.4) 08/21/16 05:41 Abs React Lymphs (Man) 0.0 K/mm3 08/21/16 05:41 Monocytes # (Manual) 0.9 K/mm3 (0.0-0.8) H 08/21/16 05:41 Eosinophils # (Manual) 0.0 K/mm3 (0.0-0.4) 08/21/16 05:41 Basophils # (Manual) 0.0 K/mm3 (0.0-0.1) 08/21/16 05:41 Metamyelocytes # 0.0 K/mm3 08/21/16 05:41 Myelocytes # 0.0 K/mm3 08/21/16 05:41 Promyelocytes # 0.0 K/mm3 08/21/16 05:41 Blast Cells # 0.0 K/mm3 08/21/16 05:41 WBC Morphology Not Reportable 08/21/16 05:41 Hypersegmented Neuts Not Reportable 08/21/16 05:41 Hyposegmented Neuts Not Reportable 08/21/16 05:41 Hypogranular Neuts Not Reportable 08/21/16 05:41 Smudge Cells Not Reportable 08/21/16 05:41 Toxic Granulation Not Reportable 08/21/16 05:41 Toxic Vacuolation Not Reportable 08/21/16 05:41 Dohle Bodies Not Reportable 08/21/16 05:41 Pelger-Huet Anomaly Not Reportable 08/21/16 05:41 Pauline Rods Not Reportable 08/21/16 05:41 Platelet Estimate Not Reportable 08/21/16 05:41 Clumped Platelets Not Reportable 08/21/16 05:41 Plt Clumps, EDTA Not Reportable 08/21/16 05:41 Large Platelets Not Reportable 08/21/16 05:41 Giant Platelets Not Reportable 08/21/16 05:41 Platelet Satelliting Not Reportable 08/21/16 05:41 Plt Morphology Comment Not Reportable 08/21/16 05:41 RBC Morphology Not Reportable 08/21/16 05:41 Dimorphic RBCs Not Reportable 08/21/16 05:41 Polychromasia Not Reportable 08/21/16 05:41 Hypochromasia Not Reportable 08/21/16 05:41 Poikilocytosis Not Reportable 08/21/16 05:41 Anisocytosis Few 08/21/16 05:41 Microcytosis Not Reportable 08/21/16 05:41 Macrocytosis Not Reportable 08/21/16 05:41 Spherocytes Not Reportable 08/21/16 05:41 Pappenheimer Bodies Not Reportable 08/21/16 05:41 Sickle Cells Not Reportable 08/21/16 05:41 Target Cells Not Reportable 08/21/16 05:41 Tear Drop Cells Not Reportable 08/21/16 05:41 Ovalocytes Not Reportable 08/21/16 05:41 Helmet Cells Not Reportable 08/21/16 05:41 [place] Bodies Not Reportable 08/21/16 05:41 [place] Rings Not Reportable 08/21/16 05:41 [place] Cells Not Reportable 08/21/16 05:41 Bite Cells Not Reportable 08/21/16 05:41 Crenated Cell Not Reportable 08/21/16 05:41 Elliptocytes Not Reportable 08/21/16 05:41 Acanthocytes (Spur) Not Reportable 08/21/16 05:41 Rouleaux Not Reportable 08/21/16 05:41 Hemoglobin C Crystals Not Reportable 08/21/16 05:41 Schistocytes Not Reportable 08/21/16 05:41 Malaria parasites Not Reportable 08/21/16 05:41 Sriram Bodies Not Reportable 08/21/16 05:41 Hem Pathologist Commnt No 08/21/16 05:41 POC ABG pH 7.297 (7.35-7.45) L 08/21/16 20:23 POC ABG pCO2 32.0 (35-45) L 08/21/16 20:23 POC ABG pO2 93 (80-105) 08/21/16 20:23 POC ABG HCO3 15.6 08/21/16 20:23 POC ABG Total CO2 17 08/21/16 20:23 POC ABG O2 Sat 96 08/21/16 20:23 POC ABG Base Excess -11 08/21/16 20:23 VBG pH 7.328 (7.320-7.420) 08/20/16 12:40 FiO2 21 % 08/21/16 20:23 Sodium 146 mmol/L (137-145) H 08/21/16 10:25 Potassium 4.2 mmol/L (3.6-5.0) D 08/21/16 10:25 Chloride 110.7 mmol/L (98-107) H 08/21/16 10:25 Carbon Dioxide 14 mmol/L (22-30) L 08/21/16 10:25 Anion Gap 26 mmol/L 08/21/16 10:25 BUN 62 mg/dL (7-17) H 08/21/16 10:25 Creatinine 4.3 mg/dL (0.7-1.2) H 08/21/16 10:25 Estimated GFR 12 ml/min 08/21/16 10:25 BUN/Creatinine Ratio 14.41 % 08/21/16 10:25 Glucose 225 mg/dL (65-100) H 08/21/16 16:54 POC Glucose 217 (70-105) H 08/22/16 05:42 Hemoglobin A1c 13.1 % (4-6) H 08/20/16 12:40 Lactic Acid 3.0 mmol/L (0.7-2.0) H* 08/20/16 18:58 Calcium 9.9 mg/dL (8.4-10.2) 08/21/16 10:25 Total Bilirubin 0.6 mg/dL (0.1-1.2) 08/20/16 12:40 AST 14 units/L (5-40) 08/20/16 12:40 ALT 7 units/L (7-56) 08/20/16 12:40 Alkaline Phosphatase 143 units/L (35-129) H 08/20/16 12:40 Total Creatine Kinase 119 units/L (30-135) 08/20/16 12:40 CK-MB (CK-2) 8.7 ng/mL (0.0-4.0) H 08/20/16 12:40 CK-MB (CK-2) Rel Index 7.3 (0-4) H 08/20/16 12:40 Troponin T 0.037 ng/mL (0.00-0.029) H 08/20/16 12:40 Total Protein 9.7 g/dL (6.3-8.2) H 08/20/16 12:40 Albumin 4.3 g/dL (3.9-5) 08/20/16 12:40 Albumin/Globulin Ratio 0.8 % 08/20/16 12:40 Triglycerides 80 mg/dL (2-149) 08/20/16 12:40 Cholesterol 188 mg/dL (50-199) 08/20/16 12:40 LDL Cholesterol Direct 80 mg/dL (50-130) 08/20/16 12:40 HDL Cholesterol 92 mg/dL (40-59) H 08/20/16 12:40 Cholesterol/HDL Ratio 2.04 % 08/20/16 12:40 Amylase 107 units/L (27-131) 08/20/16 12:40 Lipase 15 units/L (13-60) 08/20/16 12:40 TSH 1.620 mlU/mL (0.270-4.200) 08/20/16 12:40 Free T4 1.04 ng/dL (0.76-1.46) 08/20/16 12:40 Urine Color Blue (Yellow) 08/20/16 12:27 Urine Turbidity Turbid (Clear) 08/20/16 12:27 Urine pH 5.0 (5.0-7.0) 08/20/16 12:27 Ur Specific [place] 1.016 (1.003-1.030) 08/20/16 12:27 Urine Protein 100 mg/dl mg/dL (Negative) 08/20/16 12:27 Urine Glucose (UA) >=500 mg/dL (Negative) 08/20/16 12:27 Urine Ketones 20 mg/dL (Negative) 08/20/16 12:27 Urine Blood Sm (Negative) 08/20/16 12:27 Urine Nitrite Neg (Negative) 08/20/16 12:27 Urine Bilirubin Neg (Negative) 08/20/16 12:27 Urine Urobilinogen < 2.0 mg/dL (<2.0) 08/20/16 12:27 Ur Leukocyte Esterase Mod (Negative) 08/20/16 12:27 Urine WBC (Auto) > 182.0 /HPF (0.0-6.0) H 08/20/16 12:27 Urine RBC (Auto) 62.0 /HPF (0.0-6.0) 08/20/16 12:27 Urine Mucus 1+ /HPF 08/20/16 12:27 Ketones 12.2 mg/dL (0.2-2.8) H 08/20/16 12:40 - Imaging and Cardiology CT scan - abdomen: image reviewed (no evidence of obstructive uropathy)
[2016-08-22] MEDS: APRESOLINE PO SCH ×2 (14:56→23:11)
[2016-08-22 19:51] LABS: Hematocrit 32.1 % (30.3-42.9); Hemoglobin 10.9 gm/dl (10.1-14.3); Mean Corpuscular HGB Conc 34 % (30-34); Mean Corpuscular Hemoglobin 29 pg (28-32); Mean Corpuscular Volume 86 fl (79-97); Platelet Count 222 K/mm3 (140-440); Red Blood Count 3.74 M/mm3 (3.65-5.03); Red Cell Distribution Width 15.9 % (13.2-15.2); White Blood Count 15.4 K/mm3 (4.5-11.0)
[2016-08-22 20:09] LABS: BUN/Creatinine Ratio 15.3; Calcium 7.9 mg/dL (8.4-10.2); Chloride 100.5 mmol/L (98-107); Potassium 4.2 mmol/L (3.6-5.0)
--- NOTE | 2016-08-22 20:46 | Consultation ---
TIME OF SERVICE: Around 10:00 in the morning. REQUESTING PHYSICIAN: Dr. Peng. REASON FOR CONSULTATION: Renal failure. SOURCE OF INFORMATION: From the patient's current chart as well as old chart was also reviewed. The patient is a very poor historian, unable to contribute in history making. HISTORY OF PRESENT ILLNESS: The patient is a 75-year-old -[place] female, who has been admitted here with nausea, vomiting, and diarrhea for the last 2 to 3 days. The patient's appetite has been very poor and was also noted to have elevated blood sugar around 421 upon admission. The patient prior to arrival was not taking any form of nonsteroidal drugs or any form of XAVI inhibitors or ARB. BUN was 48, creatinine was 3.9, potassium of 3.8, and bicarbonate was 16 prompting this consultation. The patient's urinalysis done in the ER showed more than 182 white blood cells, 62 red blood cells. She is currently being treated for possible urinary tract infection. The patient does complain of some dryness in her mouth. Otherwise, she is an extremely poor historian. PAST MEDICAL HISTORY: Significant for multiple medical problems includin. Diabetes mellitus type 2. 2. Hypertension. 3. Peripheral vascular disease. 4. Left above-knee amputation. 5. Possible renal failure. The patient's creatinine remotely was around 1.4 in the past. CURRENT ALLERGIES: None. HOME MEDICATIONS: Aspirin, gabapentin, insulin, metoprolol, simvastatin, clonidine, Pletal and Plavix. SOCIAL HISTORY: The patient is currently a full code. No history of any alcohol, drug, or tobacco use. FAMILY HISTORY: Positive for hypertension and diabetes. REVIEW OF SYSTEMS: Very limited. The patient is a very poor historian and does complain of dryness in mouth, nausea, vomiting, and diarrhea, otherwise essentially unremarkable for all other systems. PHYSICAL EXAMINATION: GENERAL: The patient is a pleasant 75-year-old female, lying comfortably in bed, does not appear in acute distress. VITAL SIGNS: Reviewed from this admission. HEENT: Normocephalic and atraumatic. Extraocular movements intact. Oral mucosa extremely dry. NECK: Supple without thyromegaly. No JVD. CHEST: Essentially clear to auscultation anteriorly and posteriorly. HEART: Regular rate and rhythm. S1, S2 heard. No S3, S4. ABDOMEN: Soft, nontender. No voluntary guarding, rebound, or organomegaly. No masses. EXTREMITIES: The patient does not have any peripheral edema. She has one leg above knee amputation. Dry skin. NEUROLOGIC: She is alert, awake, follows simple commands. BACK: Nontender thoracolumbar spine. No CVA tenderness. PSYCHIATRIC: Flat affect. LABS AND X-RAYS: As of this admission, distended urinary bladder and ultrasound exam, otherwise echogenic kidneys. Other labs from this admission showed that her white cell count [place] was [id number], hemoglobin 12.5, hematocrit 29.1, and platelet count 317,000. Urinalysis suggestive of possible urinary tract infection, lactic acid was elevated upon arrival. Sodium is 146, potassium 4.2, chloride 110, bicarbonate, BUN 62, creatinine is 4.3, elevated from yesterday. ASSESSMENT AND PLAN: 1. Acute renal failure, severe in a patient of 75-year-old with multiple comorbidities and risk factor for chronic kidney disease and progression remotely, creatinine was 1.4 in the past. 2. She is currently admitted here with a creatinine of 3.4. The patient clearly does have a history of nausea, vomiting, poor p.o. intake, reduced skin turgor, dry oral mucosa. She will need IV hydration. 3. Rule out any possibility of obstructive uropathy, neurogenic bladder as noted. The patient does have a distended bladder on ultrasonogram. 4. Metabolic acidosis with significantly elevated lactic acid in a patient, who is admitted with a blood sugar of more than 400 without DKA. Please monitor and follow up. 5. There is no acute emergent indication for renal replacement therapy. 6. Uncontrolled diabetes mellitus type 2. 7. Nausea and vomiting? underlying diabetic gastroparesis, rule out other causes. The patient does have a history of neuropathy. 8. Admitted with encephalopathy, confusion, rule out any possible underlying dementia, cognitive impairment. 9. History of peripheral arterial disease, one leg amputee in a patient, who is also very hypertensive and does have a history of underlying renal failure. Plan of care discussed with the patient's nurse. Her prognosis appears to be poor overall due to multiple comorbidities. At this time, the patient clinically appears to be volume depleted. We will hydrate her gently. We will consider placing a Huerta catheter and obtain basic labs. No acute emergent indication for renal replacement therapy and follow up. Overall, long-term prognosis is guarded to poor. We will continue to follow and make recommendations from renal standpoint. [facility]# [id number] LORELEI/ANDREAS BARCENAS
[2016-08-22] MEDS: ZOCOR PO SCH (23:10)
[2016-08-22] MEDS: LEVEMIR SUB-Q SCH (23:13)
[2016-08-23 06:12] LABS: Basophils % (Auto) 0.3 % (0.0-1.8); Eosinophils % (Auto) 0.2 % (0.0-4.3); Hematocrit 30.2 % (30.3-42.9); Hemoglobin 9.9 gm/dl (10.1-14.3); Mean Corpuscular HGB Conc 33 % (30-34); Mean Corpuscular Hemoglobin 28 pg (28-32); Mean Corpuscular Volume 87 fl (79-97); Platelet Count 233 K/mm3 (140-440); Red Blood Count 3.47 M/mm3 (3.65-5.03); Red Cell Distribution Width 16.2 % (13.2-15.2); White Blood Count 12.9 K/mm3 (4.5-11.0)
[2016-08-23 06:32] LABS: BUN/Creatinine Ratio 13.72; Calcium 7.8 mg/dL (8.4-10.2); Chloride 101.6 mmol/L (98-107)
[2016-08-23] MEDS: APRESOLINE PO SCH ×3 (07:00→22:01)
[2016-08-23] MEDS: NOVOLOG SUB-Q SCH ×7 (08:05→23:54)
[2016-08-23] MEDS: NEURONTIN PO SCH ×3 (08:39→22:00)
[2016-08-23] MEDS: PLAVIX PO SCH (10:20)
[2016-08-23] MEDS: PLETAL PO SCH ×2 (10:21→22:00)
[2016-08-23] MEDS: BABY ASPIRIN PO SCH (10:21)
[2016-08-23] MEDS: LOPRESSOR PO SCH (10:22)
[2016-08-23] MEDS: CATAPRES PO SCH ×2 (10:22→22:02)
[2016-08-23] MEDS: ROCEPHIN/NS 1 GM/50 ML 50 ML IV SCH (10:28)
--- NOTE | 2016-08-23 13:08 | Progress Note ---
Assessment and Plan - Patient Problems (1) Elevated troponin I measurement Current Visit: Yes Status: Acute Plan to address problem: Nonspecific mild rise in troponin level requires no further cardiac workup. Subjective Date of service: 08/23/16 Interval history: Patient looks and feels better, comfortable, no cardiac complaints. Objective Vital Signs Temp Pulse Pulse Pulse Resp BP BP 08/23/16 11:57 98.3 F 89 18 119/56 08/23/16 10:22 87 116/56 08/23/16 08:00 98.1 F 87 18 105/72 08/23/16 07:00 121 H 146/80 08/23/16 04:00 98.2 F 121 H 20 146/80 08/23/16 00:00 98.6 F 94 H 20 163/82 08/22/16 23:12 92 H 133/61 08/22/16 23:11 92 H 133/61 08/22/16 22:00 65 08/22/16 20:00 98.5 F 92 H 18 133/61 08/22/16 14:28 97.8 F 65 14 122/57 Pulse Ox 08/23/16 11:57 96 08/23/16 10:22 08/23/16 08:00 97 08/23/16 07:00 08/23/16 04:00 08/23/16 00:00 98 08/22/16 23:12 08/22/16 23:11 08/22/16 22:00 08/22/16 20:00 97 08/22/16 14:28 97 - Physical Examination General: No Apparent Distress HEENT: Positive: PERRL Neck: Positive: trachea midline Cardiac: Positive: Reg Rate and Rhythm Lungs: Positive: clear to auscultation Neuro: Positive: Grossly Intact Abdomen: Positive: Soft Skin: Positive: Clear Extremities: Present: Other (left BKA). Absent: edema - Labs and Meds CBC 08/22/16 08/23/16 Range/Units 19:40 04:58 WBC 15.4 H 12.9 H (4.5-11.0) K/mm3 RBC 3.74 3.47 L (3.65-5.03) M/mm3 Hgb 10.9 9.9 L (10.1-14.3) gm/dl Hct 32.1 D 30.2 L (30.3-42.9) % Plt Count 222 233 (140-440) K/mm3 Lymph # 3.5 (1.2-5.4) K/mm3 [place] # 1.1 H (0.0-0.8) K/mm3 Eos # 0.0 (0.0-0.4) K/mm3 Baso # 0.0 (0.0-0.1) K/mm3 Comprehensive Metabolic Panel 08/22/16 08/23/16 Range/Units 19:45 04:58 Sodium 136 L D 138 (137-145) mmol/L Potassium 4.2 3.0 L D (3.6-5.0) mmol/L Chloride 100.5 101.6 (98-107) mmol/L Carbon Dioxide 16 L 21 L (22-30) mmol/L BUN 75 H 70 H (7-17) mg/dL Creatinine 4.9 H 5.1 H (0.7-1.2) mg/dL Glucose 416 H 110 H (65-100) mg/dL Calcium 7.9 L D 7.8 L (8.4-10.2) mg/dL
--- NOTE | 2016-08-23 13:32 | Progress Note ---
Assessment and Plan Disposition Plan: plan to discharge home when renal function establish. Total Time Spent with Patient (Minutes): 20 - Patient Problems (1) Acute renal failure Current Visit: Yes Status: Acute Plan to address problem: Acute renal failure. At present there is a chance this may be more chronic in nature. Patient his BUN creatinine ratio remains elevated. BUN 70 [place] 5.1 despite aggressive IV replacement. Lactic acidosis also resolved with bicarbonate drip. We'll restart fluids. Lower dose. They will stop today. (2) Elevated troponin I measurement Current Visit: Yes Status: Inactive Plan to address problem: I would've by cardiology no new treatment needed. (3) Hypertension Current Visit: Yes Status: Acute Qualifiers: Hypertension type: essential hypertension Qualified Code(s): I10 - Essential (primary) hypertension Plan to address problem: At present very well controlled continue present management. (4) Leukocytosis Current Visit: Yes Status: Suspected Plan to address problem: Improve with treatment of infection. White count is gone from 19-12. Fever curve has down trended. Clinically patient appears to be improved. (5) Nausea vomiting and diarrhea Current Visit: Yes Status: Resolved Plan to address problem: Secondary to UTI dehydration. Resolved. (6) UTI (urinary tract infection) Current Visit: Yes Status: Acute Qualifiers: Urinary tract infection type: acute cystitis Plan to address problem: Patient sepsis with UTI culture negative. Seems to be responding to IV anabiotic's. Could be culture negative disease. Versus severe he hydration. History Interval history: Clinically patient looks much better. Patient wants the [place] out. No fever overnight. Hospital course uncomplicated over p.m. Hospitalist Physical - Constitutional Vitals: Temp Pulse Resp BP Pulse Ox 98.3 F 89 18 119/56 96 08/23/16 11:57 08/23/16 11:57 08/23/16 11:57 08/23/16 11:57 08/23/16 11:57 General appearance: Present: no acute distress, other - EENT Eyes: Present: PERRL, EOM intact (weak generalize weakness.) ENT: hearing intact, clear oral mucosa, dentition normal, poor dentition - Neck Neck: Present: supple, normal ROM. Absent: enlarged thyroid, masses or JVD, cervical LAD, carotid bruits - Respiratory Respiratory effort: normal Respiratory: negative: other (poor inspiratory effort) - Cardiovascular Rhythm: regular - Extremities Extremities: pulses intact, No edema Extremity abnormal: other (bka) - Peripheral Assessment Foot Edema Degree: 1+ Capillary Refill: Immediate - Abdominal General gastrointestinal: soft, non-tender, distended - Integumentary Integumentary: Present: clear, warm, dry - Psychiatric Psychiatric: appropriate mood/affect - Neurologic Neurologic: CNII-XII intact Results - Labs CBC & Chem 7: 08/23/16 04:58 08/23/16 04:58 Labs: Laboratory Last Values WBC 12.9 K/mm3 (4.5-11.0) H 08/23/16 04:58 RBC 3.47 M/mm3 (3.65-5.03) L 08/23/16 04:58 Hgb 9.9 gm/dl (10.1-14.3) L 08/23/16 04:58 Hct 30.2 % (30.3-42.9) L 08/23/16 04:58 MCV 87 fl (79-97) 08/23/16 04:58 MCH 28 pg (28-32) 08/23/16 04:58 MCHC 33 % (30-34) 08/23/16 04:58 RDW 16.2 % (13.2-15.2) H 08/23/16 04:58 Plt Count 233 K/mm3 (140-440) 08/23/16 04:58 Lymph % (Auto) 27.0 % (13.4-35.0) 08/23/16 04:58 [place] % (Auto) 8.7 % (0.0-7.3) H 08/23/16 04:58 Eos % (Auto) 0.2 % (0.0-4.3) 08/23/16 04:58 Baso % (Auto) 0.3 % (0.0-1.8) 08/23/16 04:58 Lymph # 3.5 K/mm3 (1.2-5.4) 08/23/16 04:58 [place] # 1.1 K/mm3 (0.0-0.8) H 08/23/16 04:58 Eos # 0.0 K/mm3 (0.0-0.4) 08/23/16 04:58 Baso # 0.0 K/mm3 (0.0-0.1) 08/23/16 04:58 Add Manual Diff Complete 08/21/16 05:41 Total Counted 100 08/21/16 05:41 Seg Neutrophils % 63.8 % (40.0-70.0) 08/23/16 04:58 Seg Neuts % (Manual) 86.0 % (40.0-70.0) H 08/21/16 05:41 Band Neutrophils % 2.0 % 08/21/16 05:41 Lymphocytes % (Manual) 8.0 % (13.4-35.0) L 08/21/16 05:41 Reactive Lymphs % (Man) 0 % 08/21/16 05:41 Monocytes % (Manual) 4.0 % (0.0-7.3) 08/21/16 05:41 Eosinophils % (Manual) 0 % (0.0-4.3) 08/21/16 05:41 Basophils % (Manual) 0 % (0.0-1.8) 08/21/16 05:41 Metamyelocytes % 0 % 08/21/16 05:41 Myelocytes % 0 % 08/21/16 05:41 Promyelocytes % 0 % 08/21/16 05:41 Blast Cells % 0 % 08/21/16 05:41 Nucleated RBC % Not Reportable 08/21/16 05:41 Seg Neutrophils # 8.3 K/mm3 (1.8-7.7) H 08/23/16 04:58 Seg Neutrophils # Man 18.3 K/mm3 (1.8-7.7) H 08/21/16 05:41 Band Neutrophils # 0.4 K/mm3 08/21/16 05:41 Lymphocytes # (Manual) 1.7 K/mm3 (1.2-5.4) 08/21/16 05:41 Abs React Lymphs (Man) 0.0 K/mm3 08/21/16 05:41 Monocytes # (Manual) 0.9 K/mm3 (0.0-0.8) H 08/21/16 05:41 Eosinophils # (Manual) 0.0 K/mm3 (0.0-0.4) 08/21/16 05:41 Basophils # (Manual) 0.0 K/mm3 (0.0-0.1) 08/21/16 05:41 Metamyelocytes # 0.0 K/mm3 08/21/16 05:41 Myelocytes # 0.0 K/mm3 08/21/16 05:41 Promyelocytes # 0.0 K/mm3 08/21/16 05:41 Blast Cells # 0.0 K/mm3 08/21/16 05:41 WBC Morphology Not Reportable 08/21/16 05:41 Hypersegmented Neuts Not Reportable 08/21/16 05:41 Hyposegmented Neuts Not Reportable 08/21/16 05:41 Hypogranular Neuts Not Reportable 08/21/16 05:41 Smudge Cells Not Reportable 08/21/16 05:41 Toxic Granulation Not Reportable 08/21/16 05:41 Toxic Vacuolation Not Reportable 08/21/16 05:41 Dohle Bodies Not Reportable 08/21/16 05:41 Pelger-Huet Anomaly Not Reportable 08/21/16 05:41 Pauline Rods Not Reportable 08/21/16 05:41 Platelet Estimate Not Reportable 08/21/16 05:41 Clumped Platelets Not Reportable 08/21/16 05:41 Plt Clumps, EDTA Not Reportable 08/21/16 05:41 Large Platelets Not Reportable 08/21/16 05:41 Giant Platelets Not Reportable 08/21/16 05:41 Platelet Satelliting Not Reportable 08/21/16 05:41 Plt Morphology Comment Not Reportable 08/21/16 05:41 RBC Morphology Not Reportable 08/21/16 05:41 Dimorphic RBCs Not Reportable 08/21/16 05:41 Polychromasia Not Reportable 08/21/16 05:41 Hypochromasia Not Reportable 08/21/16 05:41 Poikilocytosis Not Reportable 08/21/16 05:41 Anisocytosis Few 08/21/16 05:41 Microcytosis Not Reportable 08/21/16 05:41 Macrocytosis Not Reportable 08/21/16 05:41 Spherocytes Not Reportable 08/21/16 05:41 Pappenheimer Bodies Not Reportable 08/21/16 05:41 Sickle Cells Not Reportable 08/21/16 05:41 Target Cells Not Reportable 08/21/16 05:41 Tear Drop Cells Not Reportable 08/21/16 05:41 Ovalocytes Not Reportable 08/21/16 05:41 Helmet Cells Not Reportable 08/21/16 05:41 Mcqueen-[place] Bodies Not Reportable 08/21/16 05:41 [place] Rings Not Reportable 08/21/16 05:41 Charles Cells Not Reportable 08/21/16 05:41 Bite Cells Not Reportable 08/21/16 05:41 Crenated Cell Not Reportable 08/21/16 05:41 Elliptocytes Not Reportable 08/21/16 05:41 Acanthocytes (Spur) Not Reportable 08/21/16 05:41 Rouleaux Not Reportable 08/21/16 05:41 Hemoglobin C Crystals Not Reportable 08/21/16 05:41 Schistocytes Not Reportable 08/21/16 05:41 Malaria parasites Not Reportable 08/21/16 05:41 Sriram Bodies Not Reportable 08/21/16 05:41 Hem Pathologist Commnt No 08/21/16 05:41 POC ABG pH 7.297 (7.35-7.45) L 08/21/16 20:23 POC ABG pCO2 32.0 (35-45) L 08/21/16 20:23 POC ABG pO2 93 (80-105) 08/21/16 20:23 POC ABG HCO3 15.6 08/21/16 20:23 POC ABG Total CO2 17 08/21/16 20:23 POC ABG O2 Sat 96 08/21/16 20:23 POC ABG Base Excess -11 08/21/16 20:23 VBG pH 7.328 (7.320-7.420) 08/20/16 12:40 FiO2 21 % 08/21/16 20:23 Sodium 138 mmol/L (137-145) 08/23/16 04:58 Potassium 3.0 mmol/L (3.6-5.0) L D 08/23/16 04:58 Chloride 101.6 mmol/L (98-107) 08/23/16 04:58 Carbon Dioxide 21 mmol/L (22-30) L 08/23/16 04:58 Anion Gap 18 mmol/L 08/23/16 04:58 BUN 70 mg/dL (7-17) H 08/23/16 04:58 Creatinine 5.1 mg/dL (0.7-1.2) H 08/23/16 04:58 Estimated GFR 10 ml/min 08/23/16 04:58 BUN/Creatinine Ratio 13.72 % 08/23/16 04:58 Glucose 110 mg/dL (65-100) H 08/23/16 04:58 POC Glucose 250 (70-105) H 08/23/16 11:15 Hemoglobin A1c 13.1 % (4-6) H 08/20/16 12:40 Osmolality 333 Mosm/kg 08/22/16 18:52 Lactic Acid 2.9 mmol/L (0.7-2.0) H* 08/22/16 18:52 Calcium 7.8 mg/dL (8.4-10.2) L 08/23/16 04:58 Total Bilirubin 0.6 mg/dL (0.1-1.2) 08/20/16 12:40 AST 14 units/L (5-40) 08/20/16 12:40 ALT 7 units/L (7-56) 08/20/16 12:40 Alkaline Phosphatase 143 units/L (35-129) H 08/20/16 12:40 Total Creatine Kinase 119 units/L (30-135) 08/20/16 12:40 CK-MB (CK-2) 8.7 ng/mL (0.0-4.0) H 08/20/16 12:40 CK-MB (CK-2) Rel Index 7.3 (0-4) H 08/20/16 12:40 Troponin T 0.037 ng/mL (0.00-0.029) H 08/20/16 12:40 Total Protein 9.7 g/dL (6.3-8.2) H 08/20/16 12:40 Albumin 4.3 g/dL (3.9-5) 08/20/16 12:40 Albumin/Globulin Ratio 0.8 % 08/20/16 12:40 Triglycerides 80 mg/dL (2-149) 08/20/16 12:40 Cholesterol 188 mg/dL (50-199) 08/20/16 12:40 LDL Cholesterol Direct 80 mg/dL (50-130) 08/20/16 12:40 HDL Cholesterol 92 mg/dL (40-59) H 08/20/16 12:40 Cholesterol/HDL Ratio 2.04 % 08/20/16 12:40 Amylase 107 units/L (27-131) 08/20/16 12:40 Lipase 15 units/L (13-60) 08/20/16 12:40 TSH 1.620 mlU/mL (0.270-4.200) 08/20/16 12:40 Free T4 1.04 ng/dL (0.76-1.46) 08/20/16 12:40 Urine Color Blue (Yellow) 08/20/16 12:27 Urine Turbidity Turbid (Clear) 08/20/16 12:27 Urine pH 5.0 (5.0-7.0) 08/20/16 12:27 Ur Specific [place] 1.016 (1.003-1.030) 08/20/16 12:27 Urine Protein 100 mg/dl mg/dL (Negative) 08/20/16 12:27 Urine Glucose (UA) >=500 mg/dL (Negative) 08/20/16 12:27 Urine Ketones 20 mg/dL (Negative) 08/20/16 12:27 Urine Blood Sm (Negative) 08/20/16 12:27 Urine Nitrite Neg (Negative) 08/20/16 12:27 Urine Bilirubin Neg (Negative) 08/20/16 12:27 Urine Urobilinogen < 2.0 mg/dL (<2.0) 08/20/16 12:27 Ur Leukocyte Esterase Mod (Negative) 08/20/16 12:27 Urine WBC (Auto) > 182.0 /HPF (0.0-6.0) H 08/20/16 12:27 Urine RBC (Auto) 62.0 /HPF (0.0-6.0) 08/20/16 12:27 Urine Mucus 1+ /HPF 08/20/16 12:27 Ketones 12.2 mg/dL (0.2-2.8) H 08/20/16 12:40 - Imaging and Cardiology Chest x-ray: report reviewed
[2016-08-23] MEDS ORDERED: NACL 0.9% 1000 ML 1,000 ML IV SCH ×2 (14:00→22:00)
--- NOTE | 2016-08-23 16:04 | Progress Note ---
Assessment and Plan Impression: * Acute kidney injury secondary to ATN * Nausea/vomiting * Urinary tract infection * Hypertension * Type II DM Plan: * Renal prognosis is guarded. She is asymptomatic at this time. Continue close observation. Will require JUNIOR DESIGNER if renal function fails to improve * Continue IVF * Abx per primary team; urine cx negative * Strict I/O * Monitor lytes and volume status closely * Avoid potential nephrotoxins * AM labs * Daughter at bedside - updated Subjective Date of service: 08/23/16 Interval history: Patient has no complaints. She denies nausea, vomiting, SOB. Objective - Vital Signs Vital signs: Vital Signs - 12hr 08/23/16 08/23/16 08/23/16 07:00 08:00 10:22 Temperature 98.1 F Pulse Rate 121 H 87 Pulse Rate [ 87 Left Radial] Respiratory 18 Rate Blood Pressure 146/80 116/56 Blood Pressure 105/72 [Left Arm] O2 Sat by Pulse 97 Oximetry 08/23/16 08/23/16 11:57 14:57 Temperature 98.3 F 98.9 F Pulse Rate Pulse Rate [ 89 102 H Left Radial] Respiratory 18 18 Rate Blood Pressure Blood Pressure 119/56 119/53 [Left Arm] O2 Sat by Pulse 96 97 Oximetry - Lab 08/23/16 04:58 08/23/16 04:58 Most recent lab results Calcium 7.8 mg/dL (8.4-10.2) L 08/23/16 04:58
[2016-08-23] MEDS: ZOCOR PO SCH (22:01)
[2016-08-23] MEDS: LEVEMIR SUB-Q SCH (22:06)
[2016-08-24] MEDS: APRESOLINE PO SCH ×3 (06:14→23:13)
[2016-08-24 06:43] LABS: Basophils % (Auto) 0.4 % (0.0-1.8); Eosinophils % (Auto) 1.3 % (0.0-4.3); Hematocrit 31.2 % (30.3-42.9); Mean Corpuscular HGB Conc 32 % (30-34); Mean Corpuscular Hemoglobin 28 pg (28-32); Mean Corpuscular Volume 88 fl (79-97); Platelet Count 207 K/mm3 (140-440); Red Blood Count 3.55 M/mm3 (3.65-5.03); Red Cell Distribution Width 15.5 % (13.2-15.2); White Blood Count 9.2 K/mm3 (4.5-11.0)
[2016-08-24 06:45] LABS: BUN/Creatinine Ratio 13.26; Calcium 7.6 mg/dL (8.4-10.2); Chloride 101.8 mmol/L (98-107)
[2016-08-24] MEDS: NEURONTIN PO SCH ×3 (08:04→20:43)
[2016-08-24] MEDS: NOVOLOG SUB-Q SCH ×6 (08:04→17:25)
[2016-08-24] MEDS: PLETAL PO SCH ×2 (10:49→23:58)
[2016-08-24] MEDS: CATAPRES PO SCH ×2 (10:50→23:59)
[2016-08-24] MEDS: LOPRESSOR PO SCH (10:50)
[2016-08-24] MEDS: PLAVIX PO SCH (10:51)
[2016-08-24] MEDS: BABY ASPIRIN PO SCH (10:51)
--- NOTE | 2016-08-24 11:49 | Progress Note ---
Assessment and Plan Impression: * Acute kidney injury secondary to ATN * Nausea/vomiting * Urinary tract infection * Hypertension - control improved * Type II DM Plan: * SCr plateaued. Continue close observation as patient is asx with stable electrolytes. * Continue IVF * Abx per primary team; urine cx negative * Continue antiHTN medications * KCl ordered * Strict I/O * Monitor lytes and volume status closely * Avoid potential nephrotoxins * AM labs Subjective Date of service: 08/24/16 Interval history: No complaints. Objective - Vital Signs Vital signs: Vital Signs - 12hr 08/23/16 08/24/16 08/24/16 23:48 04:38 06:14 Temperature 98.4 F 98.7 F Pulse Rate 86 Pulse Rate [ 110 H 86 Left Radial] Respiratory 18 18 Rate Blood Pressure 175/91 Blood Pressure 140/60 175/91 [Left Arm] O2 Sat by Pulse 97 97 Oximetry 08/24/16 08/24/16 07:58 10:50 Temperature 99.4 F Pulse Rate 72 Pulse Rate [ 72 Left Radial] Respiratory 18 Rate Blood Pressure 145/71 Blood Pressure 145/71 [Left Arm] O2 Sat by Pulse 95 Oximetry - General Appearance General appearance: well-developed, well-nourished EENT: ATNC Respiratory: Present: Clear to Ascultation Cardiology: regular, S1S2 Gastrointestinal: normal Integumentary: no rash Neurologic: no focal deficit Psychiatric: mood/affect appropriate, cooperative - Lab 08/24/16 05:48 08/24/16 05:48 Most recent lab results Calcium 7.6 mg/dL (8.4-10.2) L 08/24/16 05:48
--- NOTE | 2016-08-24 11:56 | Progress Note ---
Assessment and Plan Assessment and plan: Patient is 75-year-old woman with history of peripheral artery disease status post left AKA, insulin dependent diabetes mellitus, hypertension, dyslipidemia and CKD 4 who presents with altered mental status, confusion and reduced appetite. She was diagnosed with UTI sepsis, etc. hypertension, elevated troponin and acute on chronic renal failure. 1. UTI with sepsis, urine cultures contaminated, switch IV Rocephin to oral renal dose Augmentin 2. 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 Insulin dependent diabetes mellitus: At sliding-scale 4. Hypertension, chronic worsening: Decrease IV fluids History Interval history: Patient seen and examined. Follow up on altered mental status which is improved. Overnight uneventful. No cp, sob, n/v or severe headaches. Imaging, old records, testing, labs, nursing notes reviewed. Hospitalist Physical - Physical exam Narrative exam: GEN: WDWN, NAD, AWAKE, ALERT, ORIENTATED HEENT: NCAT, PERRL, EOMI, OP CLEAR NECK: SUPPLE, NO THYROMEGALY, NO JVD, NO LAD CVS: RRR, NORMAL S1S2 LUNGS/CHEST: CTA B, NORMAL CHEST EXPANSION B, GOOD AIR ENTRY B ABD: SOFT NTND, GBS, NO REBOUND OR GUARDING EXT/SKIN: NO SIGNIFICANT EDEMA OR RASH MSK: FROM X 4 EXTREMITIES NEURO: CN 2-12 GROSSLY INTACT, NO NEW FOCAL DEFICITS PSY: CALM - Constitutional Vitals: Temp Pulse Resp BP Pulse Ox 99.4 F 72 18 145/71 95 08/24/16 07:58 08/24/16 10:50 08/24/16 07:58 08/24/16 10:50 08/24/16 07:58 General appearance: Present: no acute distress, other Results - Labs CBC & Chem 7: 08/24/16 05:48 08/24/16 05:48 Labs: Laboratory Last Values WBC 9.2 K/mm3 (4.5-11.0) 08/24/16 05:48 RBC 3.55 M/mm3 (3.65-5.03) L 08/24/16 05:48 Hgb 10.0 gm/dl (10.1-14.3) L 08/24/16 05:48 Hct 31.2 % (30.3-42.9) 08/24/16 05:48 MCV 88 fl (79-97) 08/24/16 05:48 MCH 28 pg (28-32) 08/24/16 05:48 MCHC 32 % (30-34) 08/24/16 05:48 RDW 15.5 % (13.2-15.2) H 08/24/16 05:48 Plt Count 207 K/mm3 (140-440) 08/24/16 05:48 Lymph % (Auto) 26.4 % (13.4-35.0) 08/24/16 05:48 [place] % (Auto) 10.9 % (0.0-7.3) H 08/24/16 05:48 Eos % (Auto) 1.3 % (0.0-4.3) 08/24/16 05:48 Baso % (Auto) 0.4 % (0.0-1.8) 08/24/16 05:48 Lymph # 2.4 K/mm3 (1.2-5.4) 08/24/16 05:48 [place] # 1.0 K/mm3 (0.0-0.8) H 08/24/16 05:48 Eos # 0.1 K/mm3 (0.0-0.4) 08/24/16 05:48 Baso # 0.0 K/mm3 (0.0-0.1) 08/24/16 05:48 Add Manual Diff Complete 08/21/16 05:41 Total Counted 100 08/21/16 05:41 Seg Neutrophils % 61.0 % (40.0-70.0) 08/24/16 05:48 Seg Neuts % (Manual) 86.0 % (40.0-70.0) H 08/21/16 05:41 Band Neutrophils % 2.0 % 08/21/16 05:41 Lymphocytes % (Manual) 8.0 % (13.4-35.0) L 08/21/16 05:41 Reactive Lymphs % (Man) 0 % 08/21/16 05:41 Monocytes % (Manual) 4.0 % (0.0-7.3) 08/21/16 05:41 Eosinophils % (Manual) 0 % (0.0-4.3) 08/21/16 05:41 Basophils % (Manual) 0 % (0.0-1.8) 08/21/16 05:41 Metamyelocytes % 0 % 08/21/16 05:41 Myelocytes % 0 % 08/21/16 05:41 Promyelocytes % 0 % 08/21/16 05:41 Blast Cells % 0 % 08/21/16 05:41 Nucleated RBC % Not Reportable 08/21/16 05:41 Seg Neutrophils # 5.6 K/mm3 (1.8-7.7) 08/24/16 05:48 Seg Neutrophils # Man 18.3 K/mm3 (1.8-7.7) H 08/21/16 05:41 Band Neutrophils # 0.4 K/mm3 08/21/16 05:41 Lymphocytes # (Manual) 1.7 K/mm3 (1.2-5.4) 08/21/16 05:41 Abs React Lymphs (Man) 0.0 K/mm3 08/21/16 05:41 Monocytes # (Manual) 0.9 K/mm3 (0.0-0.8) H 08/21/16 05:41 Eosinophils # (Manual) 0.0 K/mm3 (0.0-0.4) 08/21/16 05:41 Basophils # (Manual) 0.0 K/mm3 (0.0-0.1) 08/21/16 05:41 Metamyelocytes # 0.0 K/mm3 08/21/16 05:41 Myelocytes # 0.0 K/mm3 08/21/16 05:41 Promyelocytes # 0.0 K/mm3 08/21/16 05:41 Blast Cells # 0.0 K/mm3 08/21/16 05:41 WBC Morphology Not Reportable 08/21/16 05:41 Hypersegmented Neuts Not Reportable 08/21/16 05:41 Hyposegmented Neuts Not Reportable 08/21/16 05:41 Hypogranular Neuts Not Reportable 08/21/16 05:41 Smudge Cells Not Reportable 08/21/16 05:41 Toxic Granulation Not Reportable 08/21/16 05:41 Toxic Vacuolation Not Reportable 08/21/16 05:41 Dohle Bodies Not Reportable 08/21/16 05:41 Pelger-Huet Anomaly Not Reportable 08/21/16 05:41 Pauline Rods Not Reportable 08/21/16 05:41 Platelet Estimate Not Reportable 08/21/16 05:41 Clumped Platelets Not Reportable 08/21/16 05:41 Plt Clumps, EDTA Not Reportable 08/21/16 05:41 Large Platelets Not Reportable 08/21/16 05:41 Giant Platelets Not Reportable 08/21/16 05:41 Platelet Satelliting Not Reportable 08/21/16 05:41 Plt Morphology Comment Not Reportable 08/21/16 05:41 RBC Morphology Not Reportable 08/21/16 05:41 Dimorphic RBCs Not Reportable 08/21/16 05:41 Polychromasia Not Reportable 08/21/16 05:41 Hypochromasia Not Reportable 08/21/16 05:41 Poikilocytosis Not Reportable 08/21/16 05:41 Anisocytosis Few 08/21/16 05:41 Microcytosis Not Reportable 08/21/16 05:41 Macrocytosis Not Reportable 08/21/16 05:41 Spherocytes Not Reportable 08/21/16 05:41 Pappenheimer Bodies Not Reportable 08/21/16 05:41 Sickle Cells Not Reportable 08/21/16 05:41 Target Cells Not Reportable 08/21/16 05:41 Tear Drop Cells Not Reportable 08/21/16 05:41 Ovalocytes Not Reportable 08/21/16 05:41 Helmet Cells Not Reportable 08/21/16 05:41 Mcqueen-[place] Bodies Not Reportable 08/21/16 05:41 [place] Rings Not Reportable 08/21/16 05:41 Charles Cells Not Reportable 08/21/16 05:41 Bite Cells Not Reportable 08/21/16 05:41 Crenated Cell Not Reportable 08/21/16 05:41 Elliptocytes Not Reportable 08/21/16 05:41 Acanthocytes (Spur) Not Reportable 08/21/16 05:41 Rouleaux Not Reportable 08/21/16 05:41 Hemoglobin C Crystals Not Reportable 08/21/16 05:41 Schistocytes Not Reportable 08/21/16 05:41 Malaria parasites Not Reportable 08/21/16 05:41 Sriram Bodies Not Reportable 08/21/16 05:41 Hem Pathologist Commnt No 08/21/16 05:41 POC ABG pH 7.297 (7.35-7.45) L 08/21/16 20:23 POC ABG pCO2 32.0 (35-45) L 08/21/16 20:23 POC ABG pO2 93 (80-105) 08/21/16 20:23 POC ABG HCO3 15.6 08/21/16 20:23 POC ABG Total CO2 17 08/21/16 20:23 POC ABG O2 Sat 96 08/21/16 20:23 POC ABG Base Excess -11 08/21/16 20:23 VBG pH 7.328 (7.320-7.420) 08/20/16 12:40 FiO2 21 % 08/21/16 20:23 Sodium 141 mmol/L (137-145) 08/24/16 05:48 Potassium 3.0 mmol/L (3.6-5.0) L 08/24/16 05:48 Chloride 101.8 mmol/L (98-107) 08/24/16 05:48 Carbon Dioxide 20 mmol/L (22-30) L 08/24/16 05:48 Anion Gap 22 mmol/L 08/24/16 05:48 BUN 65 mg/dL (7-17) H 08/24/16 05:48 Creatinine 4.9 mg/dL (0.7-1.2) H 08/24/16 05:48 Estimated GFR 10 ml/min 08/24/16 05:48 BUN/Creatinine Ratio 13.26 % 08/24/16 05:48 Glucose 157 mg/dL (65-100) H 08/24/16 05:48 POC Glucose 284 (70-105) H 08/24/16 10:48 Hemoglobin A1c 13.1 % (4-6) H 08/20/16 12:40 Osmolality 333 Mosm/kg 08/22/16 18:52 Lactic Acid 2.9 mmol/L (0.7-2.0) H* 08/22/16 18:52 Calcium 7.6 mg/dL (8.4-10.2) L 08/24/16 05:48 Total Bilirubin 0.6 mg/dL (0.1-1.2) 08/20/16 12:40 AST 14 units/L (5-40) 08/20/16 12:40 ALT 7 units/L (7-56) 08/20/16 12:40 Alkaline Phosphatase 143 units/L (35-129) H 08/20/16 12:40 Total Creatine Kinase 119 units/L (30-135) 08/20/16 12:40 CK-MB (CK-2) 8.7 ng/mL (0.0-4.0) H 08/20/16 12:40 CK-MB (CK-2) Rel Index 7.3 (0-4) H 08/20/16 12:40 Troponin T 0.037 ng/mL (0.00-0.029) H 08/20/16 12:40 Total Protein 9.7 g/dL (6.3-8.2) H 08/20/16 12:40 Albumin 4.3 g/dL (3.9-5) 08/20/16 12:40 Albumin/Globulin Ratio 0.8 % 08/20/16 12:40 Triglycerides 80 mg/dL (2-149) 08/20/16 12:40 Cholesterol 188 mg/dL (50-199) 08/20/16 12:40 LDL Cholesterol Direct 80 mg/dL (50-130) 08/20/16 12:40 HDL Cholesterol 92 mg/dL (40-59) H 08/20/16 12:40 Cholesterol/HDL Ratio 2.04 % 08/20/16 12:40 Amylase 107 units/L (27-131) 08/20/16 12:40 Lipase 15 units/L (13-60) 08/20/16 12:40 TSH 1.620 mlU/mL (0.270-4.200) 08/20/16 12:40 Free T4 1.04 ng/dL (0.76-1.46) 08/20/16 12:40 Urine Color Blue (Yellow) 08/20/16 12:27 Urine Turbidity Turbid (Clear) 08/20/16 12:27 Urine pH 5.0 (5.0-7.0) 08/20/16 12:27 Ur Specific [place] 1.016 (1.003-1.030) 08/20/16 12:27 Urine Protein 100 mg/dl mg/dL (Negative) 08/20/16 12:27 Urine Glucose (UA) >=500 mg/dL (Negative) 08/20/16 12:27 Urine Ketones 20 mg/dL (Negative) 08/20/16 12:27 Urine Blood Sm (Negative) 08/20/16 12:27 Urine Nitrite Neg (Negative) 08/20/16 12:27 Urine Bilirubin Neg (Negative) 08/20/16 12:27 Urine Urobilinogen < 2.0 mg/dL (<2.0) 08/20/16 12:27 Ur Leukocyte Esterase Mod (Negative) 08/20/16 12:27 Urine WBC (Auto) > 182.0 /HPF (0.0-6.0) H 08/20/16 12:27 Urine RBC (Auto) 62.0 /HPF (0.0-6.0) 08/20/16 12:27 Urine Mucus 1+ /HPF 08/20/16 12:27 Ketones 12.2 mg/dL (0.2-2.8) H 08/20/16 12:40
[2016-08-24] MEDS: ROCEPHIN/NS 1 GM/50 ML 50 ML IV SCH (12:05)
--- NOTE | 2016-08-24 12:43 | Progress Note ---
Assessment and Plan - Patient Problems (1) Elevated troponin I measurement Current Visit: Yes Status: Inactive Plan to address problem: No cardiac workup indicated for mild isolated nonspecific rise in troponin level. Subjective Date of service: 08/24/16 Interval history: Patient is comfortable, no cardiac complaints. Objective Vital Signs Temp Pulse Pulse Resp BP BP Pulse Ox 08/24/16 10:50 72 145/71 08/24/16 07:58 99.4 F 72 18 145/71 95 08/24/16 06:14 86 175/91 08/24/16 04:38 98.7 F 86 18 175/91 97 08/23/16 23:48 98.4 F 110 H 18 140/60 97 08/23/16 22:02 110 H 148/65 08/23/16 20:40 98.4 F 110 H 18 148/65 97 08/23/16 14:57 98.9 F 102 H 18 119/53 97 08/23/16 14:30 92 H 117/56 - Physical Examination General: No Apparent Distress HEENT: Positive: PERRL Neck: Positive: trachea midline Cardiac: Positive: Reg Rate and Rhythm Lungs: Positive: clear to auscultation Neuro: Positive: Grossly Intact Abdomen: Positive: Soft Skin: Positive: Clear Extremities: Present: Other (left BKA). Absent: edema - Labs and Meds CBC 08/24/16 Range/Units 05:48 WBC 9.2 (4.5-11.0) K/mm3 RBC 3.55 L (3.65-5.03) M/mm3 Hgb 10.0 L (10.1-14.3) gm/dl Hct 31.2 (30.3-42.9) % Plt Count 207 (140-440) K/mm3 Lymph # 2.4 (1.2-5.4) K/mm3 [place] # 1.0 H (0.0-0.8) K/mm3 Eos # 0.1 (0.0-0.4) K/mm3 Baso # 0.0 (0.0-0.1) K/mm3 Comprehensive Metabolic Panel 08/24/16 Range/Units 05:48 Sodium 141 (137-145) mmol/L Potassium 3.0 L (3.6-5.0) mmol/L Chloride 101.8 (98-107) mmol/L Carbon Dioxide 20 L (22-30) mmol/L BUN 65 H (7-17) mg/dL Creatinine 4.9 H (0.7-1.2) mg/dL Glucose 157 H (65-100) mg/dL Calcium 7.6 L (8.4-10.2) mg/dL
[2016-08-24] MEDS ORDERED: K-DUR PO ONE (13:00)
[2016-08-24] MEDS: ZOCOR PO SCH (23:58)
[2016-08-24] MEDS: AUGMENTIN 500 MG PO SCH (23:58)
[2016-08-25] MEDS: LEVEMIR SUB-Q SCH ×2 (00:04→22:20)
[2016-08-25] MEDS: NOVOLOG SUB-Q SCH ×8 (00:09→22:19)
[2016-08-25 06:53] LABS: Hematocrit 27.4 % (30.3-42.9); Mean Corpuscular HGB Conc 33 % (30-34); Mean Corpuscular Hemoglobin 29 pg (28-32); Mean Corpuscular Volume 88 fl (79-97); Platelet Count 201 K/mm3 (140-440); Red Blood Count 3.13 M/mm3 (3.65-5.03); Red Cell Distribution Width 15.6 % (13.2-15.2); White Blood Count 9.8 K/mm3 (4.5-11.0)
[2016-08-25 07:06] LABS: BUN/Creatinine Ratio 11.52; Calcium 7.6 mg/dL (8.4-10.2); Chloride 99.7 mmol/L (98-107)
[2016-08-25] MEDS: APRESOLINE PO SCH ×3 (08:03→22:22)
--- NOTE | 2016-08-25 09:27 | Progress Note ---
Assessment and Plan Impression: * Acute kidney injury secondary to ATN * Nausea/vomiting * Urinary tract infection * Hypertension - control improved * Type II DM Plan: * SCr trending down; close observation as patient is asx with stable electrolytes. * Continue IVF * Abx per primary team; urine cx negative * Replete lytes prn - note order for 40meq daily * Continue antiHTN medication * Strict I/O * Monitor lytes and volume status closely * Avoid potential nephrotoxins Subjective Date of service: 08/25/16 Interval history: Patient has no complaints this am. Objective - Vital Signs Vital signs: Vital Signs - 12hr 08/24/16 08/24/16 08/24/16 23:13 23:28 23:59 Temperature 98.6 F Pulse Rate 88 88 Pulse Rate [ 88 Left Radial] Respiratory 18 Rate Blood Pressure 134/68 134/68 Blood Pressure 134/68 [Left Arm] O2 Sat by Pulse 98 Oximetry 08/25/16 08/25/16 08/25/16 04:01 08:03 08:04 Temperature 98.3 F 99.1 F Pulse Rate Pulse Rate [ 78 72 Left Radial] Respiratory 18 20 Rate Blood Pressure 146/72 Blood Pressure 166/79 156/71 [Left Arm] O2 Sat by Pulse 98 96 Oximetry - General Appearance General appearance: well-developed, well-nourished EENT: ATNC Respiratory: Present: Clear to Ascultation Cardiology: regular, S1S2 Gastrointestinal: normal, no tenderness, no distended Integumentary: no rash Neurologic: no focal deficit Musculoskeletal: other (no edema) Psychiatric: cooperative - Lab 08/25/16 05:29 08/25/16 05:29 Most recent lab results Calcium 7.6 mg/dL (8.4-10.2) L 08/25/16 05:29
--- NOTE | 2016-08-25 09:33 | Progress Note ---
Assessment and Plan Generalized weakness with N/V Leukocytosis -resolved Acute renal failure DM Hypertension PVD s/p Left BKA Elevated troponin, nonspecific Conservative cardiac management. Subjective Date of service: 08/25/16 Interval history: Patient resting in bed comfortably. No distress noted. Objective Vital Signs Temp Pulse Pulse Resp BP BP Pulse Ox 08/25/16 08:04 99.1 F 72 20 156/71 96 08/25/16 08:03 146/72 08/25/16 04:01 98.3 F 78 18 166/79 98 08/24/16 23:59 88 134/68 08/24/16 23:28 98.6 F 88 18 134/68 98 08/24/16 23:13 88 134/68 08/24/16 20:03 98.4 F 82 18 138/63 99 08/24/16 16:07 97.9 F 72 20 154/67 08/24/16 15:39 72 154/67 08/24/16 10:50 72 145/71 08/24/16 10:00 96 - Physical Examination General: No Apparent Distress HEENT: Positive: PERRL Neck: Positive: trachea midline Cardiac: Positive: Reg Rate and Rhythm Lungs: Positive: Decreased Breath Sounds Neuro: Positive: Grossly Intact Abdomen: Positive: Soft Skin: Positive: Clear Extremities: Present: Other (left BKA). Absent: edema - Labs and Meds CBC 08/25/16 Range/Units 05:29 WBC 9.8 (4.5-11.0) K/mm3 RBC 3.13 L (3.65-5.03) M/mm3 Hgb 9.0 L (10.1-14.3) gm/dl Hct 27.4 L (30.3-42.9) % Plt Count 201 (140-440) K/mm3 Comprehensive Metabolic Panel 08/25/16 Range/Units 05:29 Sodium 137 (137-145) mmol/L Potassium 3.0 L (3.6-5.0) mmol/L Chloride 99.7 (98-107) mmol/L Carbon Dioxide 21 L (22-30) mmol/L BUN 53 H (7-17) mg/dL Creatinine 4.6 H (0.7-1.2) mg/dL Glucose 204 H (65-100) mg/dL Calcium 7.6 L (8.4-10.2) mg/dL
[2016-08-25] MEDS ORDERED: K-DUR PO ONE (10:00)
[2016-08-25] MEDS: CATAPRES PO SCH ×2 (11:25→22:22)
[2016-08-25] MEDS: AUGMENTIN 500 MG PO SCH ×2 (11:25→22:21)
[2016-08-25] MEDS: PLETAL PO SCH ×2 (11:25→22:21)
[2016-08-25] MEDS: LOPRESSOR PO SCH (11:26)
[2016-08-25] MEDS: PLAVIX PO SCH (11:26)
[2016-08-25] MEDS: BABY ASPIRIN PO SCH (11:26)
[2016-08-25] MEDS: NEURONTIN PO SCH ×3 (11:28→20:26)
--- NOTE | 2016-08-25 11:43 | Progress Note ---
Assessment and Plan Assessment and plan: Patient is 75-year-old woman with a history of peripheral artery disease status post left AKA, insulin dependent diabetes mellitus, hypertension, dyslipidemia and CKD 3 who presents with altered mental status, confusion and reduced appetite. She was diagnosed with UTI sepsis, etc. hypertension, elevated troponin and acute on chronic renal failure. 1. UTI with sepsis, urine cultures contaminated, if she has iv access then iv rocephin x 1 more day for total of 7 days. She refused Iv line so will continue augmentin x 1 more day 2. 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 Insulin dependent diabetes mellitus: At sliding-scale 4. Hypertension, chronic worsening: ivf Currently on admission was 3.9 and went up to 5.1 now down to 4.6. Discussed with nephrology Dr. Zaldivar would like her creatinine close to 3.9 or trending down towards 3.9 prior to discharge. History Interval history: Patient seen and examined. Follow up on altered mental status which is improved. Overnight uneventful. No cp, sob, n/v or severe headaches. Imaging, old records, testing, labs, nursing notes reviewed. Hospitalist Physical - Physical exam Narrative exam: GEN: WDWN, NAD, AWAKE, ALERT, ORIENTATED HEENT: NCAT, PERRL, EOMI, OP CLEAR NECK: SUPPLE, NO THYROMEGALY, NO JVD, NO LAD CVS: RRR, NORMAL S1S2 LUNGS/CHEST: CTA B, NORMAL CHEST EXPANSION B, GOOD AIR ENTRY B ABD: SOFT NTND, GBS, NO REBOUND OR GUARDING EXT/SKIN: NO SIGNIFICANT EDEMA OR RASH MSK: FROM X 4 EXTREMITIES NEURO: CN 2-12 GROSSLY INTACT, NO NEW FOCAL DEFICITS PSY: CALM - Constitutional Vitals: Temp Pulse Resp BP Pulse Ox 99.1 F 72 20 150/78 96 08/25/16 08:04 08/25/16 08:04 08/25/16 08:04 08/25/16 11:25 08/25/16 08:04 General appearance: Present: no acute distress, other Results - Labs CBC & Chem 7: 08/25/16 05:29 08/25/16 05:29 Labs: Laboratory Last Values WBC 9.8 K/mm3 (4.5-11.0) 08/25/16 05:29 RBC 3.13 M/mm3 (3.65-5.03) L 08/25/16 05:29 Hgb 9.0 gm/dl (10.1-14.3) L 08/25/16 05:29 Hct 27.4 % (30.3-42.9) L 08/25/16 05:29 MCV 88 fl (79-97) 08/25/16 05:29 MCH 29 pg (28-32) 08/25/16 05:29 MCHC 33 % (30-34) 08/25/16 05:29 RDW 15.6 % (13.2-15.2) H 08/25/16 05:29 Plt Count 201 K/mm3 (140-440) 08/25/16 05:29 Lymph % (Auto) 26.4 % (13.4-35.0) 08/24/16 05:48 [place] % (Auto) 10.9 % (0.0-7.3) H 08/24/16 05:48 Eos % (Auto) 1.3 % (0.0-4.3) 08/24/16 05:48 Baso % (Auto) 0.4 % (0.0-1.8) 08/24/16 05:48 Lymph # 2.4 K/mm3 (1.2-5.4) 08/24/16 05:48 [place] # 1.0 K/mm3 (0.0-0.8) H 08/24/16 05:48 Eos # 0.1 K/mm3 (0.0-0.4) 08/24/16 05:48 Baso # 0.0 K/mm3 (0.0-0.1) 08/24/16 05:48 Add Manual Diff Complete 08/21/16 05:41 Total Counted 100 08/21/16 05:41 Seg Neutrophils % 61.0 % (40.0-70.0) 08/24/16 05:48 Seg Neuts % (Manual) 86.0 % (40.0-70.0) H 08/21/16 05:41 Band Neutrophils % 2.0 % 08/21/16 05:41 Lymphocytes % (Manual) 8.0 % (13.4-35.0) L 08/21/16 05:41 Reactive Lymphs % (Man) 0 % 08/21/16 05:41 Monocytes % (Manual) 4.0 % (0.0-7.3) 08/21/16 05:41 Eosinophils % (Manual) 0 % (0.0-4.3) 08/21/16 05:41 Basophils % (Manual) 0 % (0.0-1.8) 08/21/16 05:41 Metamyelocytes % 0 % 08/21/16 05:41 Myelocytes % 0 % 08/21/16 05:41 Promyelocytes % 0 % 08/21/16 05:41 Blast Cells % 0 % 08/21/16 05:41 Nucleated RBC % Not Reportable 08/21/16 05:41 Seg Neutrophils # 5.6 K/mm3 (1.8-7.7) 08/24/16 05:48 Seg Neutrophils # Man 18.3 K/mm3 (1.8-7.7) H 08/21/16 05:41 Band Neutrophils # 0.4 K/mm3 08/21/16 05:41 Lymphocytes # (Manual) 1.7 K/mm3 (1.2-5.4) 08/21/16 05:41 Abs React Lymphs (Man) 0.0 K/mm3 08/21/16 05:41 Monocytes # (Manual) 0.9 K/mm3 (0.0-0.8) H 08/21/16 05:41 Eosinophils # (Manual) 0.0 K/mm3 (0.0-0.4) 08/21/16 05:41 Basophils # (Manual) 0.0 K/mm3 (0.0-0.1) 08/21/16 05:41 Metamyelocytes # 0.0 K/mm3 08/21/16 05:41 Myelocytes # 0.0 K/mm3 08/21/16 05:41 Promyelocytes # 0.0 K/mm3 08/21/16 05:41 Blast Cells # 0.0 K/mm3 08/21/16 05:41 WBC Morphology Not Reportable 08/21/16 05:41 Hypersegmented Neuts Not Reportable 08/21/16 05:41 Hyposegmented Neuts Not Reportable 08/21/16 05:41 Hypogranular Neuts Not Reportable 08/21/16 05:41 Smudge Cells Not Reportable 08/21/16 05:41 Toxic Granulation Not Reportable 08/21/16 05:41 Toxic Vacuolation Not Reportable 08/21/16 05:41 Dohle Bodies Not Reportable 08/21/16 05:41 Pelger-Huet Anomaly Not Reportable 08/21/16 05:41 Pauline Rods Not Reportable 08/21/16 05:41 Platelet Estimate Not Reportable 08/21/16 05:41 Clumped Platelets Not Reportable 08/21/16 05:41 Plt Clumps, EDTA Not Reportable 08/21/16 05:41 Large Platelets Not Reportable 08/21/16 05:41 Giant Platelets Not Reportable 08/21/16 05:41 Platelet Satelliting Not Reportable 08/21/16 05:41 Plt Morphology Comment Not Reportable 08/21/16 05:41 RBC Morphology Not Reportable 08/21/16 05:41 Dimorphic RBCs Not Reportable 08/21/16 05:41 Polychromasia Not Reportable 08/21/16 05:41 Hypochromasia Not Reportable 08/21/16 05:41 Poikilocytosis Not Reportable 08/21/16 05:41 Anisocytosis Few 08/21/16 05:41 Microcytosis Not Reportable 08/21/16 05:41 Macrocytosis Not Reportable 08/21/16 05:41 Spherocytes Not Reportable 08/21/16 05:41 Pappenheimer Bodies Not Reportable 08/21/16 05:41 Sickle Cells Not Reportable 08/21/16 05:41 Target Cells Not Reportable 08/21/16 05:41 Tear Drop Cells Not Reportable 08/21/16 05:41 Ovalocytes Not Reportable 08/21/16 05:41 Helmet Cells Not Reportable 08/21/16 05:41 [place]que[place] Bodies Not Reportable 08/21/16 05:41 Fleming Rings Not Reportable 08/21/16 05:41 Charles Cells Not Reportable 08/21/16 05:41 Bite Cells Not Reportable 08/21/16 05:41 Crenated Cell Not Reportable 08/21/16 05:41 Elliptocytes Not Reportable 08/21/16 05:41 Acanthocytes (Spur) Not Reportable 08/21/16 05:41 Rouleaux Not Reportable 08/21/16 05:41 Hemoglobin C Crystals Not Reportable 08/21/16 05:41 Schistocytes Not Reportable 08/21/16 05:41 Malaria parasites Not Reportable 08/21/16 05:41 Sriram Bodies Not Reportable 08/21/16 05:41 Hem Pathologist Commnt No 08/21/16 05:41 POC ABG pH 7.297 (7.35-7.45) L 08/21/16 20:23 POC ABG pCO2 32.0 (35-45) L 08/21/16 20:23 POC ABG pO2 93 (80-105) 08/21/16 20:23 POC ABG HCO3 15.6 08/21/16 20:23 POC ABG Total CO2 17 08/21/16 20:23 POC ABG O2 Sat 96 08/21/16 20:23 POC ABG Base Excess -11 08/21/16 20:23 VBG pH 7.328 (7.320-7.420) 08/20/16 12:40 FiO2 21 % 08/21/16 20:23 Sodium 137 mmol/L (137-145) 08/25/16 05:29 Potassium 3.0 mmol/L (3.6-5.0) L 08/25/16 05:29 Chloride 99.7 mmol/L (98-107) 08/25/16 05:29 Carbon Dioxide 21 mmol/L (22-30) L 08/25/16 05:29 Anion Gap 19 mmol/L 08/25/16 05:29 BUN 53 mg/dL (7-17) H 08/25/16 05:29 Creatinine 4.6 mg/dL (0.7-1.2) H 08/25/16 05:29 Estimated GFR 11 ml/min 08/25/16 05:29 BUN/Creatinine Ratio 11.52 % 08/25/16 05:29 Glucose 204 mg/dL (65-100) H 08/25/16 05:29 POC Glucose 219 (70-105) H 08/25/16 11:23 Hemoglobin A1c 13.1 % (4-6) H 08/20/16 12:40 Osmolality 333 Mosm/kg 08/22/16 18:52 Lactic Acid 2.9 mmol/L (0.7-2.0) H* 08/22/16 18:52 Calcium 7.6 mg/dL (8.4-10.2) L 08/25/16 05:29 Total Bilirubin 0.6 mg/dL (0.1-1.2) 08/20/16 12:40 AST 14 units/L (5-40) 08/20/16 12:40 ALT 7 units/L (7-56) 08/20/16 12:40 Alkaline Phosphatase 143 units/L (35-129) H 08/20/16 12:40 Total Creatine Kinase 119 units/L (30-135) 08/20/16 12:40 CK-MB (CK-2) 8.7 ng/mL (0.0-4.0) H 08/20/16 12:40 CK-MB (CK-2) Rel Index 7.3 (0-4) H 08/20/16 12:40 Troponin T 0.037 ng/mL (0.00-0.029) H 08/20/16 12:40 Total Protein 9.7 g/dL (6.3-8.2) H 08/20/16 12:40 Albumin 4.3 g/dL (3.9-5) 08/20/16 12:40 Albumin/Globulin Ratio 0.8 % 08/20/16 12:40 Triglycerides 80 mg/dL (2-149) 08/20/16 12:40 Cholesterol 188 mg/dL (50-199) 08/20/16 12:40 LDL Cholesterol Direct 80 mg/dL (50-130) 08/20/16 12:40 HDL Cholesterol 92 mg/dL (40-59) H 08/20/16 12:40 Cholesterol/HDL Ratio 2.04 % 08/20/16 12:40 Amylase 107 units/L (27-131) 08/20/16 12:40 Lipase 15 units/L (13-60) 08/20/16 12:40 TSH 1.620 mlU/mL (0.270-4.200) 08/20/16 12:40 Free T4 1.04 ng/dL (0.76-1.46) 08/20/16 12:40 Urine Color Blue (Yellow) 08/20/16 12:27 Urine Turbidity Turbid (Clear) 08/20/16 12:27 Urine pH 5.0 (5.0-7.0) 08/20/16 12:27 Ur Specific [place] 1.016 (1.003-1.030) 08/20/16 12:27 Urine Protein 100 mg/dl mg/dL (Negative) 08/20/16 12:27 Urine Glucose (UA) >=500 mg/dL (Negative) 08/20/16 12:27 Urine Ketones 20 mg/dL (Negative) 08/20/16 12:27 Urine Blood Sm (Negative) 08/20/16 12:27 Urine Nitrite Neg (Negative) 08/20/16 12:27 Urine Bilirubin Neg (Negative) 08/20/16 12:27 Urine Urobilinogen < 2.0 mg/dL (<2.0) 08/20/16 12:27 Ur Leukocyte Esterase Mod (Negative) 08/20/16 12:27 Urine WBC (Auto) > 182.0 /HPF (0.0-6.0) H 08/20/16 12:27 Urine RBC (Auto) 62.0 /HPF (0.0-6.0) 08/20/16 12:27 Urine Mucus 1+ /HPF 08/20/16 12:27 Ketones 12.2 mg/dL (0.2-2.8) H 08/20/16 12:40
[2016-08-25] MEDS: ZOCOR PO SCH (22:21)
[2016-08-26] MEDS: APRESOLINE PO SCH (05:44)
[2016-08-26] MEDS: NOVOLOG SUB-Q SCH ×2 (08:28→08:29)
[2016-08-26] MEDS: NEURONTIN PO SCH (08:28)
--- NOTE | 2016-08-26 08:42 | Progress Note ---
Assessment and Plan Impression: * Acute kidney injury secondary to ATN * Nausea/vomiting * Urinary tract infection * Hypertension - control improved * Type II DM Plan: * AM labs are pending - SCr has been trending down; close observation as patient is asx with stable electrolytes. * Continue IVF * Abx per primary team; urine cx negative * Replete lytes prn * Continue antiHTN medication * Strict I/O * Monitor lytes and volume status closely * Avoid potential nephrotoxins Subjective Date of service: 08/26/16 Objective - Vital Signs Vital signs: Vital Signs - 12hr 08/25/16 08/25/16 08/26/16 22:22 23:14 04:21 Temperature 98.5 F 97.9 F Pulse Rate 77 Pulse Rate [ Left Radial] Pulse Rate [ 80 76 Right Radial] Respiratory 18 18 Rate Blood Pressure 137/65 Blood Pressure [Left Arm] Blood Pressure 132/64 126/59 [Right Arm] O2 Sat by Pulse 98 98 Oximetry 08/26/16 08/26/16 05:44 07:00 Temperature 100 F H Pulse Rate 73 Pulse Rate [ 73 Left Radial] Pulse Rate [ Right Radial] Respiratory 16 Rate Blood Pressure 137/63 Blood Pressure 141/65 [Left Arm] Blood Pressure [Right Arm] O2 Sat by Pulse 99 Oximetry - General Appearance General appearance: well-developed, well-nourished EENT: ATNC Respiratory: Present: Clear to Ascultation Cardiology: regular, S1S2 Gastrointestinal: normal, no tenderness, no distended Integumentary: no rash Neurologic: no focal deficit Psychiatric: mood/affect appropriate, cooperative - Lab 08/25/16 05:29 08/25/16 05:29 Most recent lab results Calcium 7.6 mg/dL (8.4-10.2) L 08/25/16 05:29
[2016-08-26 09:02] LABS: BUN/Creatinine Ratio 11.25; Calcium 7.7 mg/dL (8.4-10.2); Chloride 106.4 mmol/L (98-107); Potassium 3.4 mmol/L (3.6-5.0)
--- NOTE | 2016-08-26 09:10 | Progress Note ---
<RAVI FUENTES - Last Filed: 08/26/16 09:09> Assessment and Plan Generalized weakness with N/V Leukocytosis -resolved Acute renal failure DM Hypertension PVD s/p Left BKA Elevated troponin, nonspecific Conservative cardiac management. Subjective Date of service: 08/26/16 Interval history: Patient appears well. She denies chest pain and shortness of breath. Objective Vital Signs Temp Pulse Pulse Pulse Resp BP BP 08/26/16 07:00 100 F H 73 16 141/65 08/26/16 05:44 73 137/63 08/26/16 04:21 97.9 F 76 18 08/25/16 23:14 98.5 F 80 18 08/25/16 22:22 77 137/65 08/25/16 20:29 18 08/25/16 20:08 98.6 F 77 18 08/25/16 16:40 97.6 F 70 20 122/57 08/25/16 14:48 150/80 08/25/16 11:25 150/78 BP Pulse Ox 08/26/16 07:00 99 08/26/16 05:44 08/26/16 04:21 126/59 98 08/25/16 23:14 132/64 98 08/25/16 22:22 08/25/16 20:29 100 08/25/16 20:08 126/57 98 08/25/16 16:40 08/25/16 14:48 08/25/16 11:25 - Physical Examination General: No Apparent Distress HEENT: Positive: PERRL Neck: Positive: trachea midline Cardiac: Positive: Reg Rate and Rhythm Lungs: Positive: Decreased Breath Sounds Neuro: Positive: Grossly Intact Extremities: Present: Other (left BKA). Absent: edema - Labs and Meds Comprehensive Metabolic Panel 08/26/16 Range/Units 08:06 Sodium 142 (137-145) mmol/L Potassium 3.4 L (3.6-5.0) mmol/L Chloride 106.4 (98-107) mmol/L Carbon Dioxide 21 L (22-30) mmol/L BUN 45 H (7-17) mg/dL Creatinine 4.0 H (0.7-1.2) mg/dL Glucose 140 H (65-100) mg/dL Calcium 7.7 L (8.4-10.2) mg/dL <BALBINA JACKSON - Last Filed: 08/26/16 18:11> Assessment and Plan - Patient Problems (1) Elevated troponin I measurement Status: Inactive Plan to address problem: Nonspecific mild rise in troponin of uncertain significance. Cardiac status is stable, conservative cardiac management. Patient is stable for cardiac discharge. Objective Vital Signs Temp Pulse Pulse Pulse Resp BP BP 08/26/16 12:17 97.8 F 58 L 15 125/58 08/26/16 10:17 98.7 F 08/26/16 10:11 70 140/85 08/26/16 07:00 100 F H 73 16 141/65 08/26/16 05:44 73 137/63 08/26/16 04:21 97.9 F 76 18 08/25/16 23:14 98.5 F 80 18 08/25/16 22:22 77 137/65 08/25/16 20:29 18 08/25/16 20:08 98.6 F 77 18 BP Pulse Ox 08/26/16 12:17 98 08/26/16 10:17 08/26/16 10:11 08/26/16 07:00 99 08/26/16 05:44 08/26/16 04:21 126/59 98 08/25/16 23:14 132/64 98 08/25/16 22:22 08/25/16 20:29 100 08/25/16 20:08 126/57 98 - Labs and Meds Comprehensive Metabolic Panel 08/26/16 Range/Units 08:06 Sodium 142 (137-145) mmol/L Potassium 3.4 L (3.6-5.0) mmol/L Chloride 106.4 (98-107) mmol/L Carbon Dioxide 21 L (22-30) mmol/L BUN 45 H (7-17) mg/dL Creatinine 4.0 H (0.7-1.2) mg/dL Glucose 140 H (65-100) mg/dL Calcium 7.7 L (8.4-10.2) mg/dL
--- NOTE | 2016-08-26 09:32 | Discharge Summary ---
Providers - Providers Date of Admission: 08/20/16 15:25 Date of discharge: 08/26/16 Attending physician: PROSPER NARVAEZ MD 08/20/16 15:34 Consult to Physician [CONS] Routine Consulting Provider: CLEOPATRA MILLAN Reason For Exam: acute on CKD; cr 3.9 Place consult to:: DR. MILLAN Notified:: OFFICE Phone number called:: [phone] Was contact made?: Yes If yes, spoke with:: HOLLIE Time called:: 09:28 Comment:: ELEUTERIO NOTIFDEBBI 08/20/16 16:19 Consult to Physician [CONS] Routine Consulting Provider: STEFAN DALTON Reason For Exam: elevated trop; weakness; PVD Place consult to:: RAVI FUENTES Notified:: RAVI FUENTES Phone number called:: INHOUSE Was contact made?: Yes If yes, spoke with:: RAVI Time called:: 08:58 Comment:: ELEUTERIO NOTIFED Primary care physician: INSTRUCTIONAL TECHNOLOGY COORDINATOR Hospitalization Reason for admission: encephalopathy Condition: Stable Hospital course: Patient is 75-year-old woman with a history of peripheral artery disease status post left AKA, insulin dependent diabetes mellitus, hypertension, dyslipidemia and CKD 3 who presents with altered mental status, confusion and reduced appetite. She was diagnosed with UTI sepsis, etc. hypertension, elevated troponin and acute on chronic renal failure. Patient hospitalization was noted to have increase creatinine was started on gentle hydration with nephrology consultation. All nephrotoxic medications were discontinued. Patient was assisted by cardiology for the nonspecific troponin elevation. Conservative management was recommended at this time. Her renal function improved down to 4 she is to follow with nephrology outpatient show complete resolution. She is stable at this point for discharge mental status improved 1. UTI with sepsis, 2. Acute on CK D stage IV, 3. Insulin dependent diabetes mellitus 4. Hypertension 5. Generalized weakness 6. Gastroenteritis 7. Leukocytosis -resolved 8. PVD s/p Left BKA 9. Elevated troponin, nonspecific 10. Metabolic encephalopathy secondary to sepsis, resolved Disposition: DC/TX HOME UNDER HOME HEALTH Time spent for discharge: 35 mins Core Measure Documentation - Palliative Care Palliative Care/ Comfort Measures: Not Applicable - Core Measures Any of the following diagnoses?: none - VTE Discharge Requirements Deep Vein Thrombosis/Pulmonary Embolism Present on Admission: No Exam - Physical Exam Narrative exam: VITAL SIGNS: Reviewed. GENERAL: The patient appeared well nourished and normally developed. Vital signs as documented. HEAD: No signs of head trauma. EYES: Pupils are equal. Extraocular motions intact. EARS: Hearing grossly intact. MOUTH: Oropharynx is normal. NECK: No adenopathy, no JVD. CHEST: Chest with clear breath sounds bilaterally. No wheezes, rales, or rhonchi. CARDIAC: Regular rate and rhythm. S1 and S2, without murmurs, gallops, or rubs. VASCULAR: No Edema. Peripheral pulses normal and equal in all extremities. ABDOMEN: Soft, without detectable tenderness. No sign of distention. No rebound or guarding, and no masses palpated. Bowel Sounds normal. MUSCULOSKELETAL: Left AKA. Extremities without clubbing, cyanosis or edema. NEUROLOGIC EXAM: Alert and oriented x 3. No focal sensory or strength deficits. PSYCHIATRIC: Mood normal. SKIN: No rash or lesions. - Constitutional Vitals: Temp Pulse Resp BP Pulse Ox 100 F H 73 16 141/65 99 08/26/16 07:00 08/26/16 07:00 08/26/16 07:00 08/26/16 07:00 08/26/16 07:00 Plan Activity: advance as tolerated, up only with assistance Diet: diabetic Special Instructions: record daily weights, record daily BP diary, record blood sugar diary, physical therapy, occupational therapy, home health RN Additional Instructions: Follow with Payment Poster in 3-5 days. Needs repeat Renal function test to be arranged by PCP or physics instructor in 3 days Follow up with: FABIEN RÍOS MD [Primary Care Provider] - 3-5 Days BALBINA JACKSON MD [Staff Physician] - 7 Days NISHA MAURER MD [Staff Physician] - 7 Days Prescriptions: Aspirin [Aspirin BABY CHEW TAB] 81 mg PO QDAY #30 tab.chew
[2016-08-26] MEDS: PLETAL PO SCH (10:10)
[2016-08-26] MEDS: LOPRESSOR PO SCH (10:11)
[2016-08-26] MEDS: PLAVIX PO SCH (10:11)
[2016-08-26] MEDS: CATAPRES PO SCH (10:11)
[2016-08-26] MEDS: AUGMENTIN 500 MG PO SCH (10:12)
[2016-08-26] MEDS: BABY ASPIRIN PO SCH (10:12)
[2016-08-26 12:21] VITALS: BP 125/58
[2016-08-26] MEDS ORDERED: FLUARIX QUAD 2016-2017(36 MOS+) IM ONE (13:00)
== END 2016-08-26 14:38 | disposition home health service (06) | DRG 871 ==
LOC: ED 11:11 → 3A 15:25
PROVIDERS: ADMIT Hospitalist; ATTEND Internal Medicine
PROC: 4A033R1 Measurement of Arterial Saturation, Peripheral, Percutaneous Approach (ICD-10-PCS; principal; 2016-08-20)
DX: A41.9 Sepsis, unspecified organism (principal); N17.0 Acute kidney failure with tubular necrosis; G93.41 Metabolic encephalopathy; N39.0 Urinary tract infection, site not specified; N18.4 Chronic kidney disease, stage 4 (severe); E78.00 Pure hypercholesterolemia, unspecified; E11.51 Type 2 diabetes mellitus with diabetic peripheral angiopathy without gangrene; I12.9 Hypertensive chronic kidney disease with stage 1 through stage 4 chronic kidney disease, or unspecified chronic kidney disease; E11.65 Type 2 diabetes mellitus with hyperglycemia; E87.5 Hyperkalemia; E78.5 Hyperlipidemia, unspecified; K52.9 Noninfective gastroenteritis and colitis, unspecified; Z79.82 Long term (current) use of aspirin; Z79.4 Long term (current) use of insulin; Z79.899 Other long term (current) drug therapy; Z89.612 Acquired absence of left leg above knee; Z83.3 Family history of diabetes mellitus; Z82.49 Family history of ischemic heart disease and other diseases of the circulatory system
CPT/HCPCS: 36415; 36600; 74176; 76770; 80048; 80053; 80061; 81001; 82010; 82140; 82150; 82550; 82553; 82803; 82805; 82947; 82962; 83036; 83690; 83930; 84439; 84443; 84484; 85007; 85025; 85027; 87040; 87086; 90686; 93005; 93010; 96365; 96375; G8996-GN; G8997-GN; G8998-GN; J0360; J0696; J1815; J1818; J2405; J7030

== ENCOUNTER 2017-09-07 13:12 | Outpatient (CLI) | payer MEDICARE ==
[2017-09-07 13:48] LABS: Hematocrit 22.1 % (30.3-42.9); Hemoglobin 7.5 gm/dl (10.1-14.3); Mean Corpuscular HGB Conc 34 % (30-34); Mean Corpuscular Hemoglobin 30 pg (28-32); Mean Corpuscular Volume 90 fl (79-97); Platelet Count 216 K/mm3 (140-440); Red Blood Count 2.47 M/mm3 (3.65-5.03); Red Cell Distribution Width 15.2 % (13.2-15.2)
[2017-09-07 14:06] LABS: Creatinine,Urine 57.9 mg/dL (0.1-20.0)
[2017-09-07 14:21] LABS: Albumin 3.7 g/dL (3.9-5); Calcium 8.4 mg/dL (8.4-10.2)
[2017-09-07 14:22] LABS: Hepatitis A Antibody IgM Non-Reactive (NonReactive); Hepatitis B Core IgM Non-Reactive (NonReactive); Hepatitis B Surface Antigen Non-Reactive (Negative); Hepatitis C Virus Antibody Non-Reactive (NonReactive)
--- NOTE | 2017-09-07 15:34 | XRay Report ---
ROUTINE CHEST, TWO VIEWS: HISTORY: Dyspnea. The trachea, heart, mediastinal contour, lung acuna and bony thorax are unremarkable. IMPRESSION: Unremarkable chest x-ray.
== END 2017-09-07 13:13 | disposition home or self-care (01) ==
LOC: XRAY 13:12
PROVIDERS: ATTEND Internal Medicine Nephrology
DX: I12.0 Hypertensive chronic kidney disease with stage 5 chronic kidney disease or end stage renal disease (principal); N18.5 Chronic kidney disease, stage 5; E11.22 Type 2 diabetes mellitus with diabetic chronic kidney disease; D63.1 Anemia in chronic kidney disease; E87.2 Acidosis
CPT/HCPCS: 36415; 71046; 80048; 80074; 82040; 82565; 82570; 82575; 84100; 84156; 85027

== ENCOUNTER 2018-05-19 12:44 | Emergency (ER) | payer MEDICARE ==
--- NOTE | 2018-05-19 13:25 | Emergency Department Report ---
ED General Adult HPI - General Stated complaint: NOT RESPONDING Time Seen by Provider: 05/19/18 13:03 - History of Present Illness Initial comments: 77-year-old female with a history of hypertension, left BKA, and end-stage renal disease presents after being brought from her dialysis center with altered mental status. Patient currently is oriented to person as well as to time knowing the date of 2017. Patient per her daughter recently left rehabilitation after being admitted for an ERSD issue. He states that yesterday patient was fine. Daughter states the patient went to dialysis on Thursday without any complication. Here in emergency department patient denies any pain however when asked where she is she states that she is at [facility] and this is consistent with how patient presented while at the dialysis center. Daughter states this is not the patient's baseline. Patient has had no fever or chills per her daughter. - Related Data Home Medications Medication Instructions Recorded Confirmed Last Taken Gabapentin 100 mg PO TID 10/21/13 08/20/16 Unknown Insulin Aspart [NovoLOG Flexpen] 5 units SUB-Q TID 10/21/13 08/20/16 Unknown Insulin Glargine,Hum.rec.anlog 18 unit SUB-Q QHS 10/21/13 08/20/16 Unknown [Lantus Solostar] Metoprolol [Lopressor TAB] 100 mg PO QDAY 10/21/13 08/20/16 Unknown Simvastatin 20 mg PO QHS 10/21/13 08/20/16 Unknown cloNIDine [Catapres] 0.2 mg PO BID 10/21/13 08/20/16 Unknown Bisacodyl [Dulcolax tab] 5 mg PO DAILY PRN 08/20/16 08/20/16 Unknown Cilostazol [Pletal] 100 mg PO BID 08/20/16 08/20/16 Unknown Clopidogrel [Plavix] 75 mg PO QDAY 08/20/16 08/20/16 Unknown Previous Rx's Medication Instructions Recorded Last Taken Type Aspirin [Aspirin BABY CHEW TAB] 81 mg PO QDAY #30 tab.chew 08/25/16 Unknown Rx Allergies Allergy/AdvReac Type Severity Reaction Status Date / Time No Known Allergies Allergy Verified 10/24/13 17:22 ED Review of Systems ROS: Stated complaint: NOT RESPONDING Other details as noted in HPI Comment: Unobtainable due to pts medical conditions ENT: ear pain, throat pain Cardiovascular: denies: chest pain, palpitations Endocrine: no symptoms reported Gastrointestinal: denies: abdominal pain, nausea, diarrhea Genitourinary: denies: urgency, dysuria, discharge Musculoskeletal: denies: back pain, joint swelling, arthralgia Skin: denies: rash, lesions Neurological: denies: headache, weakness, paresthesias Psychiatric: denies: anxiety, depression Hematological/Lymphatic: denies: easy bleeding, easy bruising ED Past Medical Hx - Past Medical History Hx Hypertension: Yes Hx Diabetes: Yes (30 yr) Additional medical history: high chol esrd. PVD - Surgical History Additional Surgical History: vascular surgery - Social History Smoking Status: Former Smoker - Medications Home Medications: Home Medications Medication Instructions Recorded Confirmed Last Taken Type Gabapentin 100 mg PO TID 10/21/13 08/20/16 Unknown History Insulin Aspart [NovoLOG Flexpen] 5 units SUB-Q TID 10/21/13 08/20/16 Unknown History Insulin Glargine,Hum.rec.anlog 18 unit SUB-Q QHS 10/21/13 08/20/16 Unknown History [Lantus Solostar] Metoprolol [Lopressor TAB] 100 mg PO QDAY 10/21/13 08/20/16 Unknown History Simvastatin 20 mg PO QHS 10/21/13 08/20/16 Unknown History cloNIDine [Catapres] 0.2 mg PO BID 10/21/13 08/20/16 Unknown History Bisacodyl [Dulcolax tab] 5 mg PO DAILY PRN 08/20/16 08/20/16 Unknown History Cilostazol [Pletal] 100 mg PO BID 08/20/16 08/20/16 Unknown History Clopidogrel [Plavix] 75 mg PO QDAY 08/20/16 08/20/16 Unknown History Aspirin [Aspirin BABY CHEW TAB] 81 mg PO QDAY #30 tab.chew 08/25/16 Unknown Rx ED Physical Exam - General General appearance: lethargic, other (uncomfortable; dehydrated) - Head Head exam: Present: atraumatic, normocephalic - Eye Eye exam: Present: normal appearance - ENT ENT exam: Present: mucous membranes dry - Neck Neck exam: Present: normal inspection - Respiratory Respiratory exam: Present: other (course breath sounds in the bases of the lungs ). Absent: respiratory distress - Cardiovascular Cardiovascular Exam: Present: regular rate, normal rhythm. Absent: systolic murmur, diastolic murmur, rubs, gallop - GI/Abdominal GI/Abdominal exam: Present: soft, normal bowel sounds - Extremities Exam Extremities exam: Present: other (left below the knee amputation noted) - Back Exam Back exam: Present: normal inspection - Neurological Exam Neurological exam: Present: CN II-XII intact, other (patient is oriented to person and to time but not to place; able to follow verbal commands) - Psychiatric Psychiatric exam: Present: agitated - Skin Skin exam: Present: warm, dry, intact, normal color. Absent: rash ED Course Vital Signs 05/19/18 05/19/18 05/19/18 13:11 13:15 13:17 Temperature 98.2 F Pulse Rate 78 75 72 Respiratory 18 15 16 Rate Blood Pressure 118/59 129/62 O2 Sat by Pulse 90 98 Oximetry 05/19/18 05/19/18 05/19/18 13:30 13:39 13:57 Temperature 98.2 F Pulse Rate 80 Respiratory 14 16 Rate Blood Pressure 128/61 O2 Sat by Pulse 96 97 Oximetry ED Medical Decision Making - Lab Data Result diagrams: 05/19/18 13:34 05/19/18 13:23 - EKG Data -: EKG Interpreted by Ks EKG shows normal: sinus rhythm - EKG Data Interpretation: LVH - Radiology Data Radiology results: report reviewed - Medical Decision Making Patient mental status has improved and patient's daughter is at the bedside. She currently is oriented to person place and time and sitting upright and is comfortable. Daughter states the patient is at her baseline as well. Patient has a normal glucose. Patient to be discharged to follow-up with her PCP. - Differential Diagnosis STEMIl; NSTEMI; Intracranial Mass; CVA; Dehydration; Anemia Critical care attestation.: If time is entered above; I have spent that time in minutes in the direct care of this critically ill patient, excluding procedure time. ED Disposition Clinical Impression: Altered mental status, ESRD (end stage renal disease), Anemia Disposition: DC-01 TO HOME OR SELFCARE Is pt being admited?: No Condition: Stable Referrals: PRIMARY CARE, [Primary Care Provider] - 3-5 Days EVER WEEKS MD [Staff Physician] - 3-5 Days Time of Disposition: 15:22 Print Language: YORUBA
[2018-05-19 13:45] LABS: Basophils # (Auto) 0.1 K/mm3 (0.0-0.1); Basophils % (Auto) 0.8 % (0.0-1.8); Eosinophils # (Auto) 0.1 K/mm3 (0.0-0.4); Eosinophils % (Auto) 1.1 % (0.0-4.3); Hematocrit 26.5 % (30.3-42.9); Hemoglobin 8.7 gm/dl (10.1-14.3); Lymphocytes % (Auto) 24.2 % (13.4-35.0); Mean Corpuscular HGB Conc 33 % (30-34); Mean Corpuscular Hemoglobin 31 pg (28-32); Mean Corpuscular Volume 95 fl (79-97); Monocytes # (Auto) 0.7 K/mm3 (0.0-0.8); Monocytes % (Auto) 9.1 % (0.0-7.3); Platelet Count 269 K/mm3 (140-440); Red Cell Distribution Width 14.7 % (13.2-15.2)
--- NOTE | 2018-05-19 14:12 | XRay Report ---
AP CHEST: HISTORY: chest pain AP view of the chest demonstrates a normal mediastinal and cardiac contour with clear lungs and normal bony and soft tissue structures. A right IJ dual-lumen venous catheter terminates at the cavoatrial junction. No pneumothorax. IMPRESSION: Unremarkable AP chest.
--- NOTE | 2018-05-19 14:34 | Cat Scan Report ---
CT HEAD WITHOUT CONTRAST: HISTORY: Altered mental status. TECHNIQUE: Sequential CT images without contrast. FINDINGS: Images obtained show bilateral prominence of the sulci and ventricles. There are no abnormal intra- or extra-axial blood or fluid collections. There are no focal masses or evidence of mass effect. The alexis white matter differentiation appears within normal limits. Regions of periventricular decreased attenuation are consistent with microangiopathic ischemic disease. The posterior fossa structures including the fourth ventricle, cerebellum, and brainstem appear normal. There is fluid throughout the sphenoid sinuses. Mild mucosal thickening in the ethmoid sinuses. IMPRESSION: Evidence of atrophy and microangiopathic ischemic disease. No acute intracranial process noted. Fluid in the sphenoid sinuses. Correlate for acute sinusitis.
[2018-05-19 14:47] LABS: Albumin 3.6 g/dL (3.9-5); BUN/Creatinine Ratio 5; Blood Urea Nitrogen 24 mg/dL (7-17); Calcium 9.1 mg/dL (8.4-10.2); Hemolysis Index 2
[2018-05-19 14:56] LABS: Alanine Aminotransferase < 5 units/L (7-56)
[2018-05-19 15:02] LABS: LDL Cholesterol,Direct 67 mg/dL (50-130)
[2018-05-19 15:16] LABS: Chol/HDL Ratio 2.57 %; HDL Cholesterol 49 mg/dL (40-59)
[2018-05-19 18:25] VITALS: BP 130/72
== END 2018-05-19 18:23 | disposition home or self-care (01) ==
LOC: ED 12:44
DX: R41.82 Altered mental status, unspecified (principal); D64.9 Anemia, unspecified; I12.0 Hypertensive chronic kidney disease with stage 5 chronic kidney disease or end stage renal disease; E11.22 Type 2 diabetes mellitus with diabetic chronic kidney disease; N18.6 End stage renal disease; E78.00 Pure hypercholesterolemia, unspecified; Z99.2 Dependence on renal dialysis; Z87.891 Personal history of nicotine dependence; Z79.4 Long term (current) use of insulin
CPT/HCPCS: 36415; 70450; 71045; 80053; 80061; 82550; 82962; 83735; 84484; 85025; 93005; 93010; 99285; G0480; 80320

== ENCOUNTER 2019-09-19 18:17 | Emergency (ER) | payer MEDICARE ==
[2019-09-19] MEDS ORDERED: cloNIDine 0.2 MG TAB PO STA (20:29)
--- NOTE | 2019-09-19 21:14 | Emergency Department Report ---
{null, ED General Adult HPI - General Chief complaint: High BP Stated complaint: HYPERTENSION Time Seen by Provider: 09/19/19 20:25 Source: EMS Mode of arrival: Stretcher Limitations: No Limitations - History of Present Illness Initial comments: 78-year-old -[place] female on dialysis due to end-stage renal disease was at dialysis today when she was found to have hypertension. EMS was notified and she was transported emergency department. Ms. Sanchez states she has been asymptomatic all day and still asymptomatic at current does not believe her b lood pressure is elevated. She reports no fevers, chills, sweats, chest pain, palpitation, nausea, vomiting, blurred vision, tinnitus, weakness. States he would like to go home to go to her home weight is warm she does not believe she needs needs any treatment and is stating she is refusing an IV. She reports no illicit drug use no caffeinated beverages or any other secondary ingestion which may have contributed to this hypertension Severity scale (0 -10): 0 Improves with: none Worsens with: none Treatments Prior to Arrival: none - Related Data Home Medications Medication Instructions Recorded Confirmed Last Taken Gabapentin 100 mg PO TID 10/21/13 08/20/16 Unknown Insulin Aspart (Nf) [NovoLOG 5 units SUB-Q TID 10/21/13 08/20/16 Unknown Flexpen] Insulin Glargine,Hum.rec.anlog 18 unit SUB-Q QHS 10/21/13 08/20/16 Unknown [Lantus Solostar] Metoprolol [Lopressor TAB] 100 mg PO QDAY 10/21/13 08/20/16 Unknown Simvastatin 20 mg PO QHS 10/21/13 08/20/16 Unknown cloNIDine [Catapres] 0.2 mg PO BID 10/21/13 08/20/16 Unknown Clopidogrel [Plavix] 75 mg PO QDAY 08/20/16 08/20/16 Unknown bisacodyL [Dulcolax tab] 5 mg PO DAILY PRN 08/20/16 08/20/16 Unknown cilostazoL [Pletal] 100 mg PO BID 08/20/16 08/20/16 Unknown Previous Rx's Medication Instructions Recorded Last Taken Type Aspirin [Aspirin BABY CHEW TAB] 81 mg PO QDAY #30 tab.chew 08/25/16 Unknown Rx Allergies Allergy/AdvReac Type Severity Reaction Status Date / Time No Known Allergies Allergy Verified 10/24/13 17:22 ED Review of Systems ROS: Stated complaint: HYPERTENSION Other details as noted in HPI Comment: All other systems reviewed and negative ED Past Medical Hx - Past Medical History Hx Hypertension: Yes Hx Diabetes: Yes (30 yr) Additional medical history: high chol esrd. PVD - Surgical History Additional Surgical History: vascular surgery - Social History Smoking Status: Never Smoker Substance Use Type: None - Medications Home Medications: Home Medications Medication Instructions Recorded Confirmed Last Taken Type Gabapentin 100 mg PO TID 10/21/13 08/20/16 Unknown History Insulin Aspart (Nf) [NovoLOG 5 units SUB-Q TID 10/21/13 08/20/16 Unknown History Flexpen] Insulin Glargine,Hum.rec.anlog 18 unit SUB-Q QHS 10/21/13 08/20/16 Unknown History [Lantus Solostar] Metoprolol [Lopressor TAB] 100 mg PO QDAY 10/21/13 08/20/16 Unknown History Simvastatin 20 mg PO QHS 10/21/13 08/20/16 Unknown History cloNIDine [Catapres] 0.2 mg PO BID 10/21/13 08/20/16 Unknown History Clopidogrel [Plavix] 75 mg PO QDAY 08/20/16 08/20/16 Unknown History bisacodyL [Dulcolax tab] 5 mg PO DAILY PRN 08/20/16 08/20/16 Unknown History cilostazoL [Pletal] 100 mg PO BID 08/20/16 08/20/16 Unknown History Aspirin [Aspirin BABY CHEW TAB] 81 mg PO QDAY #30 tab.chew 08/25/16 Unknown Rx ED Physical Exam - General Limitations: No Limitations General appearance: alert, in no apparent distress - Head Head exam: Present: atraumatic, normocephalic - Eye Eye exam: Present: normal appearance, PERRL, EOMI. Absent: scleral icterus, conjunctival injection, periorbital swelling, periorbital tenderness Pupils: Present: normal accommodation. Absent: irregular, unequal, miosis, mydriatic - ENT ENT exam: Present: normal exam, normal orophraynx, mucous membranes moist, TM's normal bilaterally - Neck Neck exam: Present: normal inspection - Respiratory Respiratory exam: Present: normal lung sounds bilaterally. Absent: respiratory distress - Cardiovascular Cardiovascular Exam: Present: regular rate, normal rhythm. Absent: systolic murmur, diastolic murmur, rubs, gallop - GI/Abdominal GI/Abdominal exam: Present: soft, normal bowel sounds - Extremities Exam Extremities exam: Present: normal inspection, other (Patient is able to move her right lower extremity with no complications does have a left lower extremity amputation) - Back Exam Back exam: Present: normal inspection - Neurological Exam Neurological exam: Present: alert, oriented X3 - Psychiatric Psychiatric exam: Present: normal affect, normal mood - Skin Skin exam: Present: warm, dry, intact, normal color. Absent: rash ED Course Vital Signs 09/19/19 09/19/19 09/19/19 20:14 20:34 20:35 Temperature 98 F Pulse Rate 77 77 Respiratory 14 14 Rate Blood Pressure 221/75 Blood Pressure 221/75 [Left] O2 Sat by Pulse 98 Oximetry 09/19/19 09/19/19 21:21 22:24 Temperature Pulse Rate 71 74 Respiratory 14 14 Rate Blood Pressure Blood Pressure 205/75 183/61 [Left] O2 Sat by Pulse 98 Oximetry ED Medical Decision Making - Medical Decision Making 78-year-old end-stage renal disease female hypertension remained asymptomatic throughout her hospital stay blood pressure significantly improved with the clonidine oral p.o. and she was she was discharged to home with the recommendation to follow-up with primary care provider for hypertensive medication adjustment. Critical care attestation.: If time is entered above; I have spent that time in minutes in the direct care of this critically ill patient, excluding procedure time. ED Disposition Clinical Impression: Hypertension Disposition: DC-01 TO HOME OR SELFCARE Is pt being admited?: No Does the pt Need Aspirin: No Condition: Stable Instructions: Hypertension (ED) Additional Instructions: During the patients emergency department stay they were noted to have at least one blood pressure measure reading greater than 120/80. Due to this measurement I verbally educated the patient on hypertension and recommended they follow-up with their primary care doctor in the next 5-7 days for repeat measurement of their blood pressure and if it remains persistently elevated that their primary care doctor may start them on medications to control their blood pressure. I also recommended several lifestyle modifications (weight loss, dietary sodium restriction, increase physical activity and moderate alcohol consumption) Referrals: PRIMARY CARE, [Referring] - 3-5 Days (Please be sure to follow-up with your primary care provider for reevaluation of hypertensive medication regimen as we discussed. Your blood pressure has improved with the provided medicines today. ) }
[2019-09-19 22:25] VITALS: BP 183/61
== END 2019-09-20 00:02 | disposition home or self-care (01) ==
LOC: ED 18:17
DX: I10 Essential (primary) hypertension (principal); E11.9 Type 2 diabetes mellitus without complications; E78.00 Pure hypercholesterolemia, unspecified; Z79.899 Other long term (current) drug therapy